=== PATIENT | male | born 1965 | race Caucasian/White ===

== ENCOUNTER 2020-07-19 06:51 | Outpatient (REF) | payer OTHER, SELFPAY ==
[2020-07-19 07:58] LABS: MANUAL DIFF FLAG NO
[2020-07-19 08:06] LABS: Basophils Percent Auto 0.6 % (0-2); Eosinophils Absolute Auto 0.1 X10*3/uL (0.0-0.4); Eosinophils Percent Auto 1.8 % (0-4); Hematocrit 43.7 % (42-52); Imm Gran Abs Auto 0.03 X10*3/uL (0.00-0.03); Imm Gran Pct Auto 0.4 % (0.0-0.4); Lymphocytes Absolute Auto 1.7 X10*3/uL (1.2-4.9); Lymphocytes Percent Auto 25.6 % (20-40); Mean Corpuscular HGB Conc 34.3 g/dl (31.0-36.0); Mean Corpuscular Hemoglobin 30.1 pg (27.0-33.0); Mean Corpuscular Volume 87.6 fL (80-98); Monocytes Absolute Auto 0.5 X10*3/uL (0.1-1.2); Monocytes Percent Auto 7.2 % (2-11); Neutrophils Absolute Auto 4.4 X10*3/uL (2.0-8.3); Neutrophils Percent Auto 64.4 % (45-73); Platelet Count 220 X10*3/uL (160-400); Red Blood Count 4.99 X10*6/uL (4.60-5.80); Red Cell Distribution Width 11.8 % (11.0-16.0); White Blood Count 6.8 X10*3/uL (4.8-10.8)
[2020-07-19 08:28] LABS: Alanine Aminotransferase 44 U/L (0-40); Albumin Level 4.7 g/dL (3.5-5.0); Alkaline Phosphatase 40 U/L (39-117); Anion Gap 12 (12-20); Aspartate Amino Transferase 26 U/L (5-37); Bilirubin Total 0.8 mg/dL (0.0-1.0); Blood Urea Nitrogen 13 mg/dL (9-16); Calcium 9.2 mg/dL (8.4-10.2); Carbon Dioxide 28 mmol/L (22-29); Chloride 102 mmol/L (96-108); Cholesterol 221 mg/dL; Estimated Glomerular Filt Rate > 60; Glucose Fasting 93 mg/dL (60-99); HDL Cholesterol 52 mg/dL; LDL Cholesterol Calculated 155 mg/dl; Potassium 4.2 mmol/l (3.3-5.1); Sodium 138 mmol/L (135-145); Total Protein 7.4 g/dL (6.5-8.0); Triglycerides 74 mg/dL
[2020-07-19 09:19] LABS: Creatinine Urine 202.46 mg/dL; Microalbum/Creatinine Ratio Ur 3.9 ug/mg cr
[2020-07-19 10:23] LABS: Estimated Average Glucose 88 mg/dL; Hemoglobin A1c % 4.7 %
== END 2020-07-19 06:52 | disposition home or self-care (01) ==
LOC: HO.LAB 06:51
PROVIDERS: Visit Provider Physician Assistant
DX: E78.5 Hyperlipidemia, unspecified (principal); I10 Essential (primary) hypertension; Z13.1 Encounter for screening for diabetes mellitus
CPT/HCPCS: 36415; 80053; 80061; 82043; 83036; 85025

== ENCOUNTER 2020-10-16 13:08 | Outpatient (REF) | payer OTHER, SELFPAY | END 2020-10-16 13:09 | disposition home or self-care (01) | LOC: HO.LAB 13:08 | PROVIDERS: Visit Provider Internal Medicine | DX: Z20.822 Contact with and (suspected) exposure to COVID-19 (principal) | CPT/HCPCS: 36415; C9803; U0003; U0005 ==

== ENCOUNTER 2020-10-17 10:51 | Outpatient (REF) | payer OTHER, SELFPAY ==
--- NOTE | ~2020-10-17 | XR_ITS ---
EXAMINATION: XR RIBS, RIGHT CLINICAL INFORMATION: Pleurodynia COMPARISON: Chest radiograph 01/25/2012, 11/12/2011 TECHNIQUE: Frontal view chest and 5 views of the right ribs are obtained for a total of 6 views. FINDINGS: On 2 of the ribs films, there is subtle focal cortical irregularity distal seventh anterior rib suggesting nondisplaced fracture. There is no destructive process. Remainder of the ribs appear intact. The lungs are clear. There is no pneumothorax, pleural reaction, airspace consolidation, or effusion. The heart is normal in size and the hilar and mediastinal contours are normal. The costophrenic sulci are clear. XR/XR ribs RT min 3V w CXR1V IMPRESSION: 1. Suspect nondisplaced fracture distal right anterior seventh rib. No destructive process. 2. Lungs clear. No pneumothorax, pleural reaction, or airspace opacity.
== END 2020-10-17 10:52 | disposition home or self-care (01) ==
LOC: HO.XRAY 10:51
PROVIDERS: PCP Internal Medicine; Visit Provider Nurse Practitioner Family
DX: R07.81 Pleurodynia (principal)
CPT/HCPCS: 71101

== ENCOUNTER 2020-11-30 06:31 | Outpatient (REF) | payer OTHER, SELFPAY ==
[2020-11-30 06:58] LABS: MANUAL DIFF FLAG NO
[2020-11-30 07:05] LABS: Basophils Percent Auto 0.5 % (0-2); Eosinophils Absolute Auto 0.2 X10*3/uL (0.0-0.4); Eosinophils Percent Auto 2.1 % (0-4); Hematocrit 46.3 % (42-52); Hemoglobin 15.6 g/dl (14.0-18.0); Imm Gran Abs Auto 0.03 X10*3/uL (0.00-0.03); Imm Gran Pct Auto 0.4 % (0.0-0.4); Lymphocytes Absolute Auto 2.2 X10*3/uL (1.2-4.9); Lymphocytes Percent Auto 27.7 % (20-40); Mean Corpuscular HGB Conc 33.7 g/dl (31.0-36.0); Mean Corpuscular Hemoglobin 28.8 pg (27.0-33.0); Mean Corpuscular Volume 85.4 fL (80-98); Mean Platelet Volume 10.6 fL (9.4-12.4); Monocytes Absolute Auto 0.6 X10*3/uL (0.1-1.2); Monocytes Percent Auto 7.5 % (2-11); Neutrophils Absolute Auto 4.9 X10*3/uL (2.0-8.3); Neutrophils Percent Auto 61.8 % (45-73); Platelet Count 244 X10*3/uL (160-400); Red Blood Count 5.42 X10*6/uL (4.60-5.80); Red Cell Distribution Width 11.5 % (11.0-16.0)
[2020-11-30 07:27] LABS: Alanine Aminotransferase 44 U/L (0-40); Albumin Level 4.8 g/dL (3.5-5.0); Alkaline Phosphatase 51 U/L (39-117); Anion Gap 15 (12-20); Aspartate Amino Transferase 26 U/L (5-37); Bilirubin Total 1.4 mg/dL (0.0-1.0); Blood Urea Nitrogen 14 mg/dL (9-16); Calcium 10.1 mg/dL (8.4-10.2); Carbon Dioxide 26 mmol/L (22-29); Chloride 100 mmol/L (96-108); Cholesterol 224 mg/dL; Estimated Glomerular Filt Rate > 60; Glucose Fasting 96 mg/dL (60-99); HDL Cholesterol 48 mg/dL; LDL Cholesterol Calculated 163 mg/dl; Potassium 4.3 mmol/L (3.3-5.1); Sodium 137 mmol/L (135-145); Total Protein 7.4 g/dL (6.5-8.0); Triglycerides 69 mg/dL
== END 2020-11-30 06:32 | disposition home or self-care (01) ==
LOC: HO.LAB 06:31
PROVIDERS: PCP Internal Medicine; Visit Provider Nurse Practitioner Family
DX: R07.81 Pleurodynia (principal)
CPT/HCPCS: 36415; 80053; 80061; 85025

== ENCOUNTER 2021-05-20 13:51 | Outpatient (REF) | payer OTHER, SELFPAY ==
--- NOTE | ~2021-05-20 | XR_ITS ---
EXAMINATION: XR CHEST CLINICAL INFORMATION: Cough COMPARISON: November 12, 2011 and right rib series of October 17, 2020 TECHNIQUE: 2 views of the chest were obtained. FINDINGS: There are regions of discoid scarring seen in both lung bases and the mid left lung. Heart normal size. No evidence of pulmonary edema. No pneumothorax or pleural effusion. There is an ill-defined hazy density seen within the right upper lobe. XR/XR chest 2V IMPRESSION: Ill-defined hazy density right upper lobe not seen on study of October 17, 2020 and may represent region of pneumonitis and less likely developing mass.
== END 2021-05-20 13:52 | disposition home or self-care (01) ==
LOC: HO.XRAY 13:51
PROVIDERS: PCP Internal Medicine; Visit Provider Nurse Practitioner Family
DX: R05.8 Other specified cough (principal)
CPT/HCPCS: 71046

== ENCOUNTER 2021-07-17 13:03 | Outpatient (REF) | payer SELFPAY ==
--- NOTE | ~2021-07-17 | XR_ITS ---
EXAMINATION: XR CHEST CLINICAL INFORMATION: Lung disorder. Prior CXR abnormality. Other disorders of lung. COMPARISON: 05/20/2021 TECHNIQUE: 2 views of the chest were obtained. FINDINGS: Lungs are well-inflated and clear. Previously observed patchy hazy pulmonary opacities have resolved. Trachea is midline in position. No interstitial disease, consolidation or mass. No pulmonary edema, pleural effusion or pneumothorax. Cardiac silhouette and pulmonary vessels are normal in size. The mediastinum and vincent have normal contour. Diffuse idiopathic skeletal hyperostosis as manifest by bulky flowing anterior ligament ossification of the mid to lower thoracic spine. XR/XR chest 2V IMPRESSION: Lungs have a normal appearance on this follow-up examination. No evidence of any residual pulmonary infiltrate.
== END 2021-07-17 13:04 | disposition home or self-care (01) ==
LOC: HO.XRAY 13:03
PROVIDERS: PCP Internal Medicine; Visit Provider Internal Medicine
DX: J98.4 Other disorders of lung (principal)
CPT/HCPCS: 71046

== ENCOUNTER 2022-05-09 07:14 | Outpatient (REF) | payer OTHER, SELFPAY ==
[2022-05-09 07:25] LABS: MANUAL DIFF FLAG NO
[2022-05-09 07:48] LABS: Basophils Percent Auto 0.5 % (0-2); Eosinophils Absolute Auto 0.2 X10*3/uL (0.0-0.4); Eosinophils Percent Auto 1.8 % (0-4); Hematocrit 44.1 % (42.0-52.0); Hemoglobin 14.8 g/dl (14.0-18.0); Imm Gran Abs Auto 0.06 X10*3/uL (0.00-0.03); Imm Gran Pct Auto 0.7 % (0.0-0.4); Lymphocytes Percent Auto 23.9 % (20-40); Mean Corpuscular HGB Conc 33.6 g/dl (31.0-36.0); Mean Corpuscular Hemoglobin 29.6 pg (27.0-33.0); Mean Corpuscular Volume 88.2 fL (80.0-98.0); Mean Platelet Volume 10.2 fL (9.4-12.4); Monocytes Absolute Auto 0.5 X10*3/uL (0.1-1.2); Monocytes Percent Auto 6.5 % (2-11); Neutrophils Absolute Auto 5.5 x10*3/uL (2.0-8.3); Neutrophils Percent Auto 66.6 % (45-73); Platelet Count 257 X10*3/uL (160-400); Red Cell Distribution Width 11.9 % (11.0-16.0); White Blood Count 8.3 X10*3/uL (4.8-10.8)
[2022-05-09 08:04] LABS: Alanine Aminotransferase 60 U/L (0-40); Albumin Level 4.5 g/dL (3.5-5.0); Alkaline Phosphatase 43 U/L (39-117); Anion Gap 14 (12-20); Aspartate Amino Transferase 32 U/L (5-37); Blood Urea Nitrogen 14 mg/dL (9-16); Calcium 9.2 mg/dL (8.4-10.2); Carbon Dioxide 27 mmol/L (22-29); Chloride 102 mmol/L (96-108); Cholesterol 248 mg/dL; Estimated Glomerular Filt Rate > 60; Glucose Random 104 mg/dL (60-115); HDL Cholesterol 46 mg/dL; LDL Cholesterol Calculated 180 mg/dl; Potassium 4.9 mmol/L (3.3-5.1); Sodium 138 mmol/L (135-145); Total Protein 7.1 g/dL (6.5-8.0); Triglycerides 113 mg/dL
[2022-05-09 08:28] LABS: Free T4 (Free Thyroxine) 1.23 ng/dL (0.71-1.85); Prostate Specific Antigen Scr 3.31 ng/mL (<0.05-4.0); Thyroid Stimulating Hormone 0.71 uIU/mL (0.32-4.0)
[2022-05-09 08:51] LABS: Folate 16.6 ng/mL (> or = 4.0); Vitamin B12 488 pg/mL (200-900)
== END 2022-05-09 07:15 | disposition home or self-care (01) ==
LOC: HO.LAB 07:14
PROVIDERS: PCP Internal Medicine; Visit Provider Internal Medicine
DX: Z12.5 Encounter for screening for malignant neoplasm of prostate (principal); F41.1 Generalized anxiety disorder; E78.00 Pure hypercholesterolemia, unspecified
CPT/HCPCS: 36415; 80053; 80061; 82607; 82746; 84153; 84439; 84443; 85025

== ENCOUNTER 2022-07-16 09:37 | Day surgery (SDC) | payer OTHER, SELFPAY ==
[2022-07-10 16:06] VITALS: BMI 28.8
--- NOTE | 2022-07-15 10:33 | HO.ANESPROP2 ---
Documented by User: Gaby Pierce NP 07/15/22 10:34 HPI - Anesthesia Eval Consult details Narrative: 57yo M for Colonoscopy PMFSH Active Problems Active Problems: All Active Problems (Updated 07/10/22 @ 15:57 by Glenna Shipley, LINDA) Dermatitis (Acute) Fracture of ribs, seven, closed (Acute) Plantar fasciitis of right foot (Acute) Colon cancer screening (Acute) Dry cough (Acute) Annual physical exam (Acute) Lung density on x-ray (Acute) Situational anxiety (Acute) Fatty liver (Acute) URI (upper respiratory infection) (Acute) HLD (hyperlipidemia) (Acute) HTN (hypertension) (Acute) Overweight (BMI 25.0-29.9) (Acute) Past Medical History Medical History Blood pressure elevated without history of HTN HLD (hyperlipidemia) HTN (hypertension) On beta cholo at home Overweight (BMI 25.0-29.9) SARS-CoV-2 positive Family History Family History Father Alcohol abuse Substance use disorder Mother Stomach cancer Surgical History Surgical History No pertinent past surgical history Social History Social History Household Members Other:: 2 kids Housing: House Alcohol intake: current Alcohol intake frequency: 0-2 drinks per day Patient Tobacco Use Status: Former Tobacco user Tobacco use type: Cigarette Years Smoked: quit 1989 e-Cigarette/Vaping Use: Never Used Second Hand Smoke Exposure: No Use of substances other than those prescribed or required for medical reasons: No Are you DNR?: No Advance Directives: No Advance Directives Information Provided: Yes service: Yes (in [place]) Current occupational status: employed 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 Cognitive needs: No Hearing needs: No Vision needs: No Meds Allergies Allergy/AdvReac Type Severity Reaction Status Date / Time lisinopril [Lisinopril] Allergy Mild ANGIOEDEMA, Verified 07/10/22 15:57 anaphylaxis SEASONAL ALLERGIES Allergy Unknown NASAL Uncoded 07/10/22 15:57 STUFFINESS Exam Exam Date and Time: July 15, 2022 1033 Height,Weight and Vital Signs: Height 6 ft 2 in Weight 101.605 kg Pertinent Lab Results Pertinent Lab Results: Laboratory Tests 05/09/22 05/09/22 07:24 07:24 WBC 8.3 Hgb 14.8 Hct 44.1 Plt Count 257 Sodium 138 Potassium 4.9 Chloride 102 Carbon Dioxide 27 BUN 14 Creatinine 0.73 Assessment and Plan Assessment Anesthesia Assessment: Chart Reviewed Documented by User: Brunilda Negron MD 07/16/22 10:10 [facility] Past Medical History Medical History Blood pressure elevated without history of HTN HLD (hyperlipidemia) HTN (hypertension) On beta cholo at home Overweight (BMI 25.0-29.9) SARS-CoV-2 positive Family History Family History Father Alcohol abuse Substance use disorder Mother Stomach cancer Surgical History Surgical History No pertinent past surgical history History of Problems with Anesthesia: No Social History Social History Household Members Other:: 2 kids Housing: House Alcohol intake: current Alcohol intake frequency: 0-2 drinks per day Patient Tobacco Use Status: Former Tobacco user Tobacco use type: Cigarette Years Smoked: quit 1989 e-Cigarette/Vaping Use: Never Used Second Hand Smoke Exposure: No Use of substances other than those prescribed or required for medical reasons: No Are you DNR?: No Advance Directives: No Advance Directives Information Provided: Yes service: Yes (in [place]) Current occupational status: employed 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 Cognitive needs: No Hearing needs: No Vision needs: No Meds Allergies Allergy/AdvReac Type Severity Reaction Status Date / Time lisinopril [Lisinopril] Allergy Mild ANGIOEDEMA, Verified 07/10/22 15:57 anaphylaxis SEASONAL ALLERGIES Allergy Unknown NASAL Uncoded 12/01/22 15:57 STUFFINESS Exam Airway Mallampati Class: III TM Dist: >3cm Neck ROM: Full Loose/Missing/Broken Teeth: No Heart: RRR Lungs: CTA Assessment and Plan Assessment Anesthesia Assessment: Anesthesia Plan Discussed Final Anesthetic Review History of Problems with Anesthesia: No NPO: Yes ASA Class: II Final Preanesthetic Review: Meds/Allgs Chart Reviewed, Consent Obtained/Reviewed and Anes Risks/Benef Reviewed Patient Risk: Low Procedure Risk: Low Anesthetic Plan Anesthetic Plan: MAC: Disposition: Standard PACU
--- NOTE | 2022-07-16 10:19 | MHC.SHP ---
Pre-Procedural Eval Section A Date of Service: 07/16/22 Section B Chief Complaint: screening Relevant Family History (Specify if Yes): No Relevant Social History: Alcohol Use Present Medications: see Short Stay Collaborative assessment Medical History: Significant History (Blood pressure elevated without history of HTN HLD (hyperlipidemia) HTN (hypertension) On beta cholo at home Overweight (BMI 25.0-29.9) SARS-CoV-2 positive) History of Previous Operations: No relevant previous surgery Allergies: Allergies Allergy/AdvReac Type Severity Reaction Status Date / Time lisinopril [Lisinopril] Allergy Mild ANGIOEDEMA, Verified 07/10/22 15:57 anaphylaxis SEASONAL ALLERGIES Allergy Unknown NASAL Uncoded 07/10/22 15:57 STUFFINESS Review of Systems Sugical H&P ROS: Negative: Constitution, Cardiovascular, Respiratory, Neurological, Psychiatric, Hem-Onc, Allergic/Immunologic, Gastrointestinal, Genitourinary, Musculoskeletal, Integumentary, Endocrine and Eyes/Ears/Nose/Throat Exam Surgical H&P Exam: Normal: HEENT, Normal: Heart, Normal: Lungs, Normal: Extremities, Normal: Abdomen, Normal: Skin and Normal: Neurological Plan Diagnosis/Plan: Unchanged I have reviewed the history and physical and performed a pertinent physical examination on my patient. No changes have occurred unless specified.
[2022-07-16 10:25] VITALS: BP 144/82; PULSE 80; RESP 14; TEMP 36.3; O2SAT 98
[2022-07-16] MEDS: Lactated Ringers 1,000 ML 100 ML IVCONT (10:26)
--- NOTE | 2022-07-16 10:56 | P.OP_ITS ---
Operative Note Operative Note Date of Service: 07/16/22 Narrative: Operative Information Procedure Description: Colonoscopy Indication: screening Anesthesia: MAC COLONOSCOPY Instrument: Olympus variable stiffness pediatric scope 190L Colonoscopy Monitoring: Vital signs and clinical assessment, continuous EKG monitoring, Pulse oximetry, Carbon Dioxide monitoring and blood pressure monitoring were done throughout the procedure. Colon withdrawal time was 10 minutes. Procedure: The patient was placed in the left lateral decubitis position and pre-procedure medications were administered. After a digital rectal examination of the ano-rectum, the video colonoscope was inserted into the rectum and advanced through the colon to the cecum/TI. The colonoscope was slowly withdrawn in a retrograde panoramic fashion and the colon mucosa was carefully examined including a retroflexed view of the rectum. Findings and interventions are described below. Procedure Difficulty: easy Findings: Terminal Ileum-normal Cecum:normal Ascending Colon: normal Transverse Colon - scattered diverticula Descending Colon: mild diverticulosis Sigmoid Colon: moderate severe diverticulosis with luminal hypertrophy, 10-12 mm sessile polyp removed with cold snare Rectum: Retroflexion with small internal hemorrhoids, grade I Anorectum - normal Colon preparation: Waldron Bowel Preparation Scale Right colon; 2 Transverse colon: 3 Left colon; 3 (0 = Unprepared colon segment with mucosa not seen due to solid stool that cannot be cleared. 1 = Portion of mucosa of the colon segment seen, but other areas of the colon segment not well seen due to staining, residual stool and/or opaque liquid. 2 = Minor amount of residual staining, small fragments of stool and/or opaque liquid, but mucosa of colon segment seen well. 3 = Entire mucosa of colon segment seen well with no residual staining, small fragments of stool or opaque liquid) Impression and Post Procedure Diagnosis: polyp internal hemorrhoids diverticular disease Plan: High fiber diet leaflet Avoid straining at stool, epsom salts and sitz bath, anusol supps or cream Repeat Colonoscopy in 5 years due to polyp or earlier if clinically indicated Above findings were reviewed with the patient and relevant handouts were provided if indicated.
[2022-07-16 10:59] VITALS: BP 143/73; PULSE 77; RESP 16; TEMP 36.4; O2SAT 97
[2022-07-16 11:14] VITALS: BP 129/68; PULSE 71; RESP 18; TEMP 36.4; O2SAT 98
== END 2022-07-16 11:59 ==
LOC: HO.SSS 09:38
PROVIDERS: PCP Internal Medicine; Visit Provider Internal Medicine Gastroenterology
PROC: 0DJD8ZZ Inspection of Lower Intestinal Tract, Via Natural or Artificial Opening Endoscopic (ICD-10-PCS; CPT 45378; principal; 2022-07-16 11:00)
DX: Z12.11 Encounter for screening for malignant neoplasm of colon (principal); D12.5 Benign neoplasm of sigmoid colon; K57.30 Diverticulosis of large intestine without perforation or abscess without bleeding; K64.0 First degree hemorrhoids; I10 Essential (primary) hypertension; E78.5 Hyperlipidemia, unspecified; Z79.899 Other long term (current) drug therapy; Z88.8 Allergy status to other drugs, medicaments and biological substances
CPT/HCPCS: 45385; 88305

== ENCOUNTER → 2022-08-07 08:01 | Outpatient (BNVA) | payer OTHER, SELFPAY | PROVIDERS: PCP Internal Medicine; Referring Provider Internal Medicine; Visit Provider Physician Assistant | DX: D36.9 Benign neoplasm, unspecified site (principal) ==

== ENCOUNTER 2023-02-26 06:41 | Outpatient (REF) | payer OTHER, SELFPAY ==
[2023-02-26 09:48] LABS: Alanine Aminotransferase 86 U/L (0-40); Albumin Level 4.4 g/dL (3.5-5.0); Alkaline Phosphatase 43 U/L (39-117); Anion Gap 13 (12-20); Aspartate Amino Transferase 49 U/L (5-37); Bilirubin Total 1.5 mg/dL (0.0-1.0); Blood Urea Nitrogen 15 mg/dL (9-16); Calcium 9.4 mg/dL (8.4-10.2); Carbon Dioxide 25 mmol/L (22-29); Chloride 102 mmol/L (96-108); Cholesterol 253 mg/dL; Estimated Glomerular Filt Rate > 60; Glucose Random 79 mg/dL (60-115); HDL Cholesterol 54 mg/dL; LDL Cholesterol Calculated 187 mg/dl; Potassium 3.7 mmol/L (3.3-5.1); Sodium 136 mmol/L (135-145); Total Protein 7.3 g/dL (6.5-8.0); Triglycerides 63 mg/dL
[2023-02-26 10:53] LABS: Estimated Average Glucose 85 mg/dL; Hemoglobin A1c % 4.6 %
== END 2023-02-26 06:42 | disposition home or self-care (01) ==
LOC: HO.LAB 06:41
PROVIDERS: PCP Internal Medicine; Visit Provider Internal Medicine
DX: E78.1 Pure hyperglyceridemia (principal); R73.01 Impaired fasting glucose; E78.00 Pure hypercholesterolemia, unspecified
CPT/HCPCS: 36415; 80053; 80061; 83036

== ENCOUNTER → 2023-12-11 07:58 | Outpatient (REF) | payer OTHER, SELFPAY ==
--- NOTE | 2023-12-11 08:05 | CA_ITS ---
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 The calculated ejection fraction is 56% by biplane method. - No obvious valvular pathology seen on this study. Findings Procedure Information Contrast agent, definity, is being given per protocol without apparent complications. Left Ventricle Normal left ventricular cavity size. The left ventricular systolic function is normal. The calculated ejection fraction is 56% by biplane method. There is no evidence of regional wall motion abnormalities. Diastolic function is normal for age. There is mild septal asymmetric hypertrophy. Right Ventricle Normal right ventricular cavity size and systolic function. Atria Both atria are normal in size. Aortic Valve There is a normal trileaflet aortic valve. There is no aortic valve stenosis. There is no aortic valve regurgitation. Mitral Valve The mitral valve appears normal. There is no mitral valve regurgitation. There is no mitral valve stenosis. Pulmonic Valve The pulmonic valve is likely normal. Tricuspid Valve Normal tricuspid valve structure. There is no tricuspid valve regurgitation. Tricuspid regurgitation envelope is inadequate for calculation of right ventricular systolic pressure. Great Vessels The sinuses of valsalva and asc aorta are normal in size. Venous The inferior vena cava is normal in size and collapses greater than 50% with inspiration. Pericardium/Pleural There is no evidence of pericardial effusion. Prior Study Comparison No prior study available for comparison. Recommendations, Care & Conclusions No obvious valvular pathology seen on this study. Measurements 2D Linear Measurements IVSd: 1.16 0.6-0.9/0.6-1.0 cm LVIDd: 5.00 3.9-5.3/4.2-5.9 cm LVIDd Index: 2.21 2.4-3.2/2.2-3.1 cm/m2 LVIDs: 3.48 2.0-3.6 cm LVPWd: 2.91 0.7-1.1 cm LV Mass: 645.99 67-162/88-224 g LV Mass Index: 285.84 43-95/49-115 g/m2 LVOT Diam: 2.30 3.0+(-)1.3 cm 2D Systolic Function EF 4C: 59.00 >55% EF 2C: 58.50 >55% EF BiP: 56.20 >55% Mitral Valve MV Pk E: 0.67 MV PK A: 0.48 MV Decel Time: 146.00 E/A: 1.40 E'Lateral: 8.70 E'Medial: 7.62 E/E' Med: 8.80 E/E' Lat: 7.70 PHT: 43.00 MVA PHT: 5.12 Decel Summit: 4.57 Aortic Valve AoV Pk Marquis: 1.13 AoV Pk Grad: 5.00 WENDI: 4.26 LVOT LVOT Pk Marquis: 1.11 LVOT Mn Marquis: 0.76 LVOT VTI: 0.23 LVOT Pk Grad: 5.00 LVOT Mn Grad: 3.00 LVOT Diam: 2.30 LVOT Area: 4.15 Diastolic Function MV Pk E: 0.67 MV Pk A: 0.48 E/A: 1.40 E'Medial: 7.62 E/E' Med: 8.80 E' Laterial: 8.70 E/E' Lat: 7.70 Right Ventricle TAPSE (mm): 19.30 TVS' Marquis: 12.90 Tricuspid Valve RA Press: 3.00 Great Vessels Aorta Sinus of Valsalva: 3.80 2.0-3.5 cm Ao Asc: 3.40 2.1-3.4 cm Pulmonary Veins Pulm Vein S/D 1.30 Pulmonary Valve PV Pk Marquis: 0.95 Peak PV Grad: 4.00 Updated in Other Vendor System with Status of Final Dominik Jade MD electronically signed on 12/12/2023 1:19:43 PM with status of Final
== END ==
LOC: HO.CARD 07:58
PROVIDERS: PCP Internal Medicine; Visit Provider Internal Medicine
DX: I48.91 Unspecified atrial fibrillation (principal)
CPT/HCPCS: 93306; Q9957

== ENCOUNTER → 2023-12-11 08:05 | Outpatient (BNV) | payer OTHER, SELFPAY | PROVIDERS: PCP Internal Medicine; Visit Provider Internal Medicine | DX: I48.91 Unspecified atrial fibrillation (principal); I42.2 Other hypertrophic cardiomyopathy | CPT/HCPCS: 93306 ==

== ENCOUNTER 2023-12-17 16:14 | Outpatient (AMB) | payer OTHER, SELFPAY ==
--- NOTE | 2023-12-17 16:26 | A.OFFPC_ITS ---
Vital Signs 12/17/23 16:27 12/17/23 16:59 Height 6 ft 2 in Weight 218 lb BMI 28.0 BP 140/76 H 144/70 H Blood Pressure Location Lt brachial Lt brachial Position Sitting Sitting Pulse 78 Pulse Source Pulse Oximeter Pulse Oximetry (%) 98 Oxygen Delivery Method Room Air Intake Visit Reasons: Physical exam Lead Dental Assistant Required: No Accompanied by: Self / Same As Patient Allergies lisinopril [Lisinopril] Allergy (Mild, Verified 12/17/23 16:27) ANGIOEDEMA, anaphylaxis SEASONAL ALLERGIES Allergy (Unknown, Uncoded 12/17/23 16:27) NASAL STUFFINESS Medication List - Last Reconciled 12/17/23 by Keiko Tabares MD cetirizine (Zyrtec) 10 mg PO DAILY clotrimazole 1% 1 appl topical BID 4 weeks metoprolol succinate ER 100 mg PO DAILY Tobacco use date assessed: 12/17/23 Dental Screening Dental Screen Date: 12/17/23 Did you have a dental visit in the last 12 months?: No Did you have a dental problem in the last 6 months where you did not have access to dental care?: No Was dental information given to patient?: Patient has dentist ([place] in his [place] HPI Physical exam HPI Details 58-year-old overweight male with hyperte nsion hypercholesterolemia fatty liver impaired glucose tolerance last seen in January 2023. Patient is here for physical exam. Patient's last colonoscopy was July 2022 echocardiogram done in 12/11/2023 showing left ventricular systolic function normal ejection fraction 56% and no obvious valvular pathology. Noted ER visit in November 2023 palpitations self-medicated with metoprolol diagnosis of paroxysmal atrial fibrillation. sleepy on watchint tv , takes a nap, sometime snore decline sleep study chest discomfort [facility] Medical History (Updated 12/17/23 @ 16:54 by Keiko Tabares MD) On beta cholo at home Situational anxiety Blood pressure elevated without history of HTN Lung density on x-ray SARS-CoV-2 positive Dry cough Colon cancer screening Overweight (BMI 25.0-29.9) HTN (hypertension) HLD (hyperlipidemia) Surgical History Hx of colonoscopy No pertinent past surgical history Family History Father Alcohol abuse Substance use disorder Mother Stomach cancer Brother Heart attack Social History (Updated 12/17/23 @ 17:03 by Keiko Tabares MD) Household Members Other:: 2 kids Housing: House Alcohol intake: current Alcohol intake frequency: 0-2 drinks per day Comment: glass of wine or 2 beers 3x a week Patient Tobacco Use Status: Former Tobacco user Tobacco use type: Cigarette Years Smoked: quit 1989 e-Cigarette/Vaping Use: Never Used Second Hand Smoke Exposure: No service: Yes (in [place]) Current occupational status: employed 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 1. Little interest or pleasure in doing things: not at all 2. Feeling down, depressed, or hopeless: not at all 3. Trouble falling or staying asleep, or sleeping too much: not at all 4. Feeling tired or having little energy: not at all 5. Poor appetite or overeating: not at all 6. Feeling bad about yourself - or that you are a failure or have let yourself or your family down: not at all 7. Trouble concentrating on things, such as reading the newspaper or watching television: not at all 8. Moving or speaking so slowly that other people could have noticed. Or the opposite - being so fidgety or restless that you have been moving around a lot more than usual: not at all 9. Thoughts that you would be better off or of hurting yourself in some way: not at all Total score: 0 Depression Screening Interpretation: Negative Depression Screening Done: Yes [id number] - PHQ-9 Billing: Yes Source: Developed by Drs. Jonas Valladares, Farideh Barba, Dio Bonds and colleagues, with an educational soham from [employer]. Thrive Questionnaire Date Thrive assessed: 12/17/23 I am a: Patient What is your living situation today?: I have a steady place to live Within the past 12 months, did the food you bought not last and you didn't have the money to get more?: Never true Within the past 12 months, did you worry whether your food would run out before you got money to buy more?: Never true Do you have trouble paying for medicines?: No Do you have trouble getting transportation to medical appointments?: No Do you have trouble paying your heating and electricity bill?: No Do you have trouble taking care of your child, family member or friend?: No Do you have trouble with day-to-day activities such as bathing, preparing meals, shopping, managing finances, etc.?: No Are you currently unemployed and looking for a job?: No Are you interested in more education?: No Currently or been in a relationship where the following occur: no concerns reported THRIVE Score: 0 AUDIT C Alcohol Use Questionnaire (AUDIT-C) 1. How often do you have a drink containing alcohol?: 2-4 times a month 2. How many drinks containing alcohol do you have on a typical day when you are drinking?: 1 or 2 3. How often do you have six or more drinks on one occasion?: Never Total Score: 2 Score Reviewed/Action Taken: No SCOTT-7 AMB Questionnaire SCOTT-7 Date SCOTT - 7 assessed: 12/17/23 Feeling nervous, anxious, or on edge: 0 = Not at all Not being able to stop or control worryin = Not at all Worrying too much about different things: 0 = Not at all Trouble relaxin = Not at all Being so restless that it is hard to sit still: 0 = Not at all Becoming easily annoyed or irritable: 0 = Not at all Feeling afraid as if something awful might happen: 0 = Not at all Total SCOTT-7 score (0-4 normal; 5-9 mild; 10-14 moderate; 15-21 severe): 0 Source: Developed by Drs. Jonas Valladares, Farideh Barba, Dio Bonds and colleagues, with an educational soham from [employer]. SCOTT-7 Assessment Billing SCOTT-7 Assessment Tool: SCOTT-7 Assessment [id number] Review of Systems Const Denies poor appetite and Denies weakness Eyes Denies no additional complaints ENT Reports Normal hearing present, Denies dizziness, Denies nasal congestion, Denies tinnitus and Denies sore throat Card Denies chest pain, Denies syncope, Denies rapid heart rate and Denies dyspnea Resp Denies cough and Denies dyspnea GI Denies change in stool character, Reports constipation, Denies diarrhea, Denies nausea and Denies vomiting Denies dysuria and Denies urinary frequency Neuro Reports Normal hearing present, Denies confusion, Denies dizziness, Denies syncope and Denies weakness Psych Denies confusion Physical exam (Primary Care) Vital Signs: Last Vital Signs Pulse 78 12/17/23 16:27 BP 140/76 H 12/17/23 16:27 Pulse Ox 98 12/17/23 16:27 Oxygen Delivery Method Room Air 12/17/23 16:27 BMI result Body Mass Index 28.0 Tobacco/Smoking Status: Tobacco use Status Tobacco use date assessed 12/17/23 12/17/23 16:36 Patient Tobacco Use Status Former Tobacco user 12/17/23 16:36 Tobacco use type Cigarette 12/17/23 16:36 e-Cigarette/Vaping Use Never Used 12/17/23 16:36 PHQ-9: PHQ-9 Score PHQ-9: Total score 0 12/17/23 16:36 Depression Screening Interpretation: Negative Thrive Assessment: Date of Thrive Assessment Date Thrive assessed 12/17/23 12/17/23 16:36 Currently or been in a relationship where the following occur: no concerns reported Const General: alert and awake; No confusion Orientation/consciousness: No confusion HENMT Head: Yes normocephalic Ears: external ears normal and TM's normal bilaterally Face and sinus: Yes normal facial exam Mouth: moist mucous membranes Throat: Yes tonsils normal Eyes Conjunctivae: conjunctivae normal Pupils: Equal, round and reactive pupils present and Pupil accommodation reflex normal Direct Ophthalmoscopy: normal light reflex Neck Neck: No lymphadenopathy Thyroid: Thyroid normal Chest Chest palpation & inspection: normal inspection of the chest Resp Effort & Inspection: normal respiratory effort and no audible wheezes Auscultation: clear to auscultation bilaterally, no crackles, no wheezes and lung sounds not diminished Cardio Rate: regular rate Rhythm: regular rhythm Peripheral pulses: radial pulses present and dorsalis pedis present GI Other: Declined rectal exam Palpation (GI): no masses Auscultation: normal bowel sounds and normoactive bowel sounds Rectal Exam - Male: Yes deferred Other: Declined exam Skin General skin exam: no rashes or lesions noted Rashes: no rashes Neuro General: deep tendon reflexes 2+ bilaterally and No confusion Cranial nerves: Yes Equal, round and reactive pupils present, Yes Midline tongue present, Yes Normal hearing present and Yes Ability to bilaterally elevate shoulders present Cognition (Neuro): normal cognition Gait exam (Neuro): Normal gait present Motor exam (neuro): 5/5 motor strength present throughout Deep tendon reflexes (DTR's): Right brachioradialis reflex intensity grade: 2+, Left brachioradialis reflex intensity grade: 2+, Right patellar reflex intensity grade: 2+ and Left patellar reflex intensity grade: 2+ Extrem General: No edema Assessment and Plan Assessment & Plan (1) Annual physical exam: Code(s): Z00.00 - Encounter for general adult medical examination without abnormal findings Plan: Discussed about eating healthy, keep well hydrated, keep active and have adequate sleep. (2) Overweight (BMI 25.0-29.9): Code(s): E66.3 - Overweight Plan: Diet and exercise (3) HTN (hypertension): Code(s): I10 - Essential (primary) hypertension Qualifiers: Hypertension type: essential hypertension Qualified Code(s): I10 - Essential (primary) hypertension Plan: Continue with blood pressure medication. Decrease salt intake and exercise patient was prescribed metoprolol 50 mg once a day but this is being taken irregularly. Patient knows now to take it regularly and has just started 2 weeks ago. Will continue to monitor blood pressure and follow-up in about 6 weeks' time. (4) HLD (hyperlipidemia): Code(s): E78.5 - Hyperlipidemia, unspecified Qualifiers: Hyperlipidemia type: pure hypertriglyceridemia Qualified Code(s): E78.1 - Pure hyperglyceridemia Plan: Avoid fried foods, chicken skin, eggs, butter margarine, pastries and meat. Be it pork or beef they have a lot of cholesterol LDL goal of less than 130 and triglyceride of less than 150. Not on any medication but we will retest. (5) Fatty liver: Code(s): K76.0 - Fatty (change of) liver, not elsewhere classified Plan: Low-fat diet and exercise (6) Impaired fasting blood sugar: Code(s): R73.01 - Impaired fasting glucose Plan: Decrease the amount of carbohydrate intake, pasta, bread, rice and potatoes are all sugar and that is aside from all the sweet stuff, remember that fruits are good but they are Sweet also. (7) Atrial fibrillation: Comment: SAMANTA 1 Code(s): I48.91 - Unspecified atrial fibrillation Plan: Continuing to monitor, referral to Cardiology, Holter testing requested. Orders: Orders Hemoglobin A1c Today R73.01 - Impaired fasting glucose Complete Blood Count Auto Diff Today E78.1 - Pure hyperglyceridemia Free T4 (Free Thyroxine) Today E78.1 - Pure hyperglyceridemia Prostate Specific Antigen Scr Today E78.1 - Pure hyperglyceridemia Thyroid Stimulating Hormone Today E78.1 - Pure hyperglyceridemia Vitamin B12 and Folate Today E78.1 - Pure hyperglyceridemia ECG 3 day holter monitor Today I48.91 - Unspecified atrial fibrillation Comprehensive Met. Panel Today R73.01 - Impaired fasting glucose Lipid Panel Today E78.00 - Pure hypercholesterolemia, unspecified, E78.1 - Pure hyperglyceridemia Referrals Cardiology Referral I48.91 - Unspecified atrial fibrillation Coding Level of Care Code Est Pt Prev Care 40-64y(48892) Diagnoses Annual physical exam Z00.00 Overweight (BMI 25.0-29.9) E66.3 Essential hypertension I10 Hypertension type: essential hypertension Pure hypertriglyceridemia E78.1 Hyperlipidemia type: pure hypertriglyceridemia Fatty liver K76.0 Impaired fasting blood sugar R73.01 Atrial fibrillation I48.91 Additional Codes SCOTT-7 Assessment Billing - SOCTT-7 Assessment Tool: SCOTT-7 Assessment [id number] ([id number])
[2023-12-17 16:27] VITALS: BP 140/76; PULSE 78; O2SAT 98; BMI 28.0
[2023-12-17 16:59] VITALS: BP 144/70
== END 2023-12-17 17:14 | disposition home or self-care (01) ==
PROVIDERS: PCP Internal Medicine; Visit Provider Internal Medicine
DX: Z00.00 Encounter for general adult medical examination without abnormal findings (principal); E66.3 Overweight; I48.91 Unspecified atrial fibrillation; I10 Essential (primary) hypertension; E78.1 Pure hyperglyceridemia; K76.0 Fatty (change of) liver, not elsewhere classified; R73.01 Impaired fasting glucose
CPT/HCPCS: 99396

== ENCOUNTER → 2024-01-06 09:05 | Outpatient (REF) | payer OTHER, SELFPAY ==
--- NOTE | 2024-01-06 09:08 | HM_ITS ---
Conclusion: 1. Patient was monitored for total period of 3 days 2. Baseline was normal sinus rhythm with average heart of 75 beats per minute 3. No significant pauses noted 4. Occasional PACs noted with no significant long episodes of SVT 5. No patient reported events MTDD
== END ==
LOC: HO.CARD 09:05
PROVIDERS: PCP Internal Medicine; Visit Provider Internal Medicine
DX: I48.91 Unspecified atrial fibrillation (principal)
CPT/HCPCS: 93242

== ENCOUNTER → 2024-01-06 09:08 | Outpatient (BNV) | payer OTHER, SELFPAY | PROVIDERS: PCP Internal Medicine; Visit Provider Internal Medicine Cardiovascular Disease | DX: I49.1 Atrial premature depolarization (principal) | CPT/HCPCS: 93244 ==

== ENCOUNTER 2024-01-08 07:08 | Outpatient (REF) | payer OTHER, SELFPAY ==
[2024-01-08 07:19] LABS: MANUAL DIFF FLAG NO
[2024-01-08 07:39] LABS: Basophils Percent Auto 0.4 % (0-2); Eosinophils Absolute Auto 0.2 X10*3/uL (0.0-0.4); Eosinophils Percent Auto 2.4 % (0-4); Hemoglobin 15.6 g/dl (14.0-18.0); Imm Gran Abs Auto 0.02 X10*3/uL (0.00-0.03); Imm Gran Pct Auto 0.3 % (0.0-0.4); Lymphocytes Absolute Auto 1.9 X10*3/uL (1.2-4.9); Lymphocytes Percent Auto 26.4 % (20-40); Mean Corpuscular HGB Conc 35.5 g/dl (31.0-36.0); Mean Corpuscular Hemoglobin 30.1 pg (27.0-33.0); Mean Corpuscular Volume 84.8 fL (80.0-98.0); Mean Platelet Volume 10.6 fL (9.4-12.4); Monocytes Absolute Auto 0.5 X10*3/uL (0.1-1.2); Monocytes Percent Auto 7.2 % (2-11); Neutrophils Absolute Auto 4.6 x10*3/uL (2.0-8.3); Neutrophils Percent Auto 63.3 % (45-73); Platelet Count 183 X10*3/uL (160-400); Red Blood Count 5.19 X10*6/uL (4.60-5.80); Red Cell Distribution Width 11.9 % (11.0-16.0); White Blood Count 7.2 X10*3/uL (4.8-10.8)
[2024-01-08 07:50] LABS: Estimated Average Glucose 91 mg/dL; Hemoglobin A1c % 4.8 % (<6.0)
[2024-01-08 08:05] LABS: Alanine Aminotransferase 55 U/L (0-40); Albumin Level 4.4 g/dL (3.5-5.0); Alkaline Phosphatase 44 U/L (39-117); Anion Gap 11 (12-20); Aspartate Amino Transferase 36 U/L (5-37); Bilirubin Total 1.2 mg/dL (0.0-1.0); Blood Urea Nitrogen 15 mg/dL (9-16); Calcium 9.8 mg/dL (8.4-10.2); Carbon Dioxide 28 mmol/L (22-29); Chloride 102 mmol/L (96-108); Cholesterol 266 mg/dL (<200); Estimated Glomerular Filt Rate > 60; Glucose Random 98 mg/dL (60-115); HDL Cholesterol 58 mg/dL (>40); LDL Cholesterol Calculated 191 mg/dL (<100); Potassium 3.8 mmol/L (3.3-5.1); Sodium 137 mmol/L (135-145); Total Protein 7.2 g/dL (6.5-8.0); Triglycerides 85 mg/dL (<150)
[2024-01-08 08:29] LABS: Folate 12.9 ng/mL (> or = 4.0); Free T4 (Free Thyroxine) 1.04 ng/dL (0.71-1.85); Prostate Specific Antigen Scr 3.84 ng/mL (<0.05-4.0); Thyroid Stimulating Hormone 0.95 uIU/mL (0.32-4.0); Vitamin B12 415 pg/mL (200-900)
== END 2024-01-08 07:09 | disposition home or self-care (01) ==
LOC: HO.LAB 07:08
PROVIDERS: PCP Internal Medicine; Visit Provider Internal Medicine
DX: E78.1 Pure hyperglyceridemia (principal); E78.00 Pure hypercholesterolemia, unspecified; R73.01 Impaired fasting glucose; Z12.5 Encounter for screening for malignant neoplasm of prostate
CPT/HCPCS: 36415; 80053; 80061; 82607; 82746; 83036; 84153; 84439; 84443; 85025

== ENCOUNTER 2024-02-05 11:49 | Outpatient (AMB) | payer OTHER, SELFPAY ==
--- NOTE | 2024-02-05 11:54 | MHC.PC.OV ---
Vital Signs 02/05/24 11:55 Height 6 ft 2 in Weight 211 lb BMI 27.1 BP 140/86 H Blood Pressure Location Lt brachial Position Sitting Pulse 68 Pulse Source Pulse Oximeter Pulse Oximetry (%) 98 Oxygen Delivery Method Room Air Intake Visit Reasons: 6 wk follow up Allergies lisinopril [Lisinopril] Allergy (Mild, Verified 02/05/24 11:56) ANGIOEDEMA, anaphylaxis SEASONAL ALLERGIES Allergy (Unknown, Uncoded 02/05/24 11:56) NASAL STUFFINESS Medication List - Last Reconciled 02/05/24 by Keiko Tabares MD cetirizine (Zyrtec) 10 mg PO DAILY clotrimazole 1% 1 appl topical BID 4 weeks metoprolol succinate ER 100 mg PO DAILY simvastatin 10 mg PO BEDTIME Tobacco use date assessed: 12/17/23 Dental Screening Dental Screen Date: 12/17/23 HPI 6 wk follow up HPI Details 58-year-old overweight male with a history of hypertension hypercholesterolemia fatty liver impaired glucose tolerance atrial fibrillation last seen in 12/28/2023. Patient's colonoscopy done 07/29/2022 up-to-date. Patient had a Holter done 01/06/2024 normal sinus rhythm no pauses occasional skipped beats. Blood work done showing hypercholesterolemia and discussed concerns about this and started on cholesterol medication. [facility] Medical History (Updated 12/17/23 @ 16:54 by Keiko Tabares MD) On beta cholo at home Situational anxiety Blood pressure elevated without history of HTN Lung density on x-ray SARS-CoV-2 positive Dry cough Colon cancer screening Overweight (BMI 25.0-29.9) HTN (hypertension) HLD (hyperlipidemia) Surgical History Hx of colonoscopy No pertinent past surgical history Family History Father Alcohol abuse Substance use disorder Mother Stomach cancer Brother Heart attack Social History (Updated 12/17/23 @ 17:03 by Keiko Tabares MD) Household Members Other:: 2 kids Housing: House Alcohol intake: current Alcohol intake frequency: 0-2 drinks per day Comment: glass of wine or 2 beers 3x a week Patient Tobacco Use Status: Former Tobacco user Tobacco use type: Cigarette Years Smoked: quit 1989 e-Cigarette/Vaping Use: Never Used Second Hand Smoke Exposure: No service: Yes (in [place]) Current occupational status: employed 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 How often do you have a drink containing alcohol?: 2-4 times a month 2. How many drinks containing alcohol do you have on a typical day when you are drinking?: 1 or 2 3. How often do you have six or more drinks on one occasion?: Never Total Score: 2 Score Reviewed/Action Taken: No SCOTT-7 AMB Questionnaire SCOTT-7 Date SCOTT - 7 assessed: 12/17/23 Source: Developed by Drs. Jonas Valladares, Farideh Barba, Dio Bonds and colleagues, with an educational soham from [employer]. Physical exam (Primary Care) Vital Signs: Last Vital Signs Pulse 68 02/05/24 11:55 BP 140/86 H 02/05/24 11:55 Pulse Ox 98 02/05/24 11:55 Oxygen Delivery Method Room Air 02/05/24 11:55 BMI result Body Mass Index 27.1 Tobacco/Smoking Status: Tobacco use Status Tobacco use date assessed 12/17/23 02/05/24 11:54 Patient Tobacco Use Status Former Tobacco user 02/05/24 11:54 Tobacco use type Cigarette 02/05/24 11:54 e-Cigarette/Vaping Use Never Used 02/05/24 11:54 Thrive Assessment: Date of Thrive Assessment Date Thrive assessed 12/17/23 02/05/24 11:54 Const General: alert; No acute distress Eyes Conjunctivae: conjunctivae normal Resp Auscultation: clear to auscultation bilaterally Cardio Rate: regular rate Rhythm: regular rhythm GI Inspection: Yes normal to inspection Extrem General: Yes normal to inspection and No edema Assessment and Plan Assessment & Plan (1) Atrial fibrillation: Comment: SAMANTA 1 Code(s): I48.91 - Unspecified atrial fibrillation Plan: Holter done revealed negative results (2) Impaired fasting blood sugar: Code(s): R73.01 - Impaired fasting glucose Plan: Decrease the amount of carbohydrate intake, pasta, bread, rice and potatoes are all sugar and that is aside from all the sweet stuff, remember that fruits are good but they are Sweet also. (3) Fatty liver: Code(s): K76.0 - Fatty (change of) liver, not elsewhere classified Plan: Low-fat diet and exercise noted weight loss (4) HTN (hypertension): Code(s): I10 - Essential (primary) hypertension Qualifiers: Hypertension type: essential hypertension Qualified Code(s): I10 - Essential (primary) hypertension Plan: Continue with blood pressure medication. Decrease salt intake and exercise patient is on metoprolol 100 mg once a day. BP at home 127-132/70 good at home (5) HLD (hyperlipidemia): Code(s): E78.5 - Hyperlipidemia, unspecified Qualifiers: Hyperlipidemia type: pure hypertriglyceridemia Qualified Code(s): E78.1 - Pure hyperglyceridemia Plan: Avoid fried foods, chicken skin, eggs, butter margarine, pastries and meat. Be it pork or beef they have a lot of cholesterol LDL goal of less than 130 and triglyceride of less than 150. Started on simvastatin 10 mg at bedtime (6) Overweight (BMI 25.0-29.9): Code(s): E66.3 - Overweight Plan: Diet and exercise Medications: New metoprolol succinate ER 100 mg PO DAILY 90 tabs 3RF I10 - Essential (primary) hypertension Coding Level of Care Code Est Pt Level 4 (01713) Diagnoses Atrial fibrillation I48.91 Impaired fasting blood sugar R73.01 Fatty liver K76.0 Essential hypertension I10 Hypertension type: essential hypertension Pure hypertriglyceridemia E78.1 Hyperlipidemia type: pure hypertriglyceridemia Overweight (BMI 25.0-29.9) E66.3
[2024-02-05 11:55] VITALS: BP 140/86; PULSE 68; O2SAT 98; BMI 27.1
== END 2024-02-05 12:42 | disposition home or self-care (01) ==
PROVIDERS: PCP Internal Medicine; Visit Provider Internal Medicine
DX: I48.91 Unspecified atrial fibrillation (principal); R73.01 Impaired fasting glucose; K76.0 Fatty (change of) liver, not elsewhere classified; I10 Essential (primary) hypertension; E78.1 Pure hyperglyceridemia; E66.3 Overweight
CPT/HCPCS: 99214

== ENCOUNTER 2024-03-14 09:28 | Outpatient (AMB) | payer OTHER, SELFPAY ==
[2024-03-14 09:31] VITALS: BP 122/68; PULSE 67; BMI 27.2
--- NOTE | 2024-03-14 09:31 | A.OFFVIS_ITS ---
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 In November of this year, he had palpitations and that led to ER visit at [facility]. Found to be in atrial fibrillation. Spontaneously resolved according to patient. Total duration is a few hours but nothing prolonged. Has not had any recurrences. History of hypertension but he was not apparently take any medications. After the episode of atrial fibrillation, he has been taking beta-blockers. No further episodes. Otherwise, no known cardiac issues. No documented sleep apnea but his states that he does note at nighttime. 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 Since that episode of atrial fibrillation, he states he is feeling fine. Doing okay without any concerns. [facility] Medical History (Updated 03/14/24 @ 09:52 by Dominik Jade MD) On beta cholo at home Situational anxiety Blood pressure elevated without history of HTN Lung density on x-ray SARS-CoV-2 positive Dry cough Colon cancer screening Overweight (BMI 25.0-29.9) HTN (hypertension) HLD (hyperlipidemia) Surgical History Hx of colonoscopy No pertinent past surgical history Family History Father Alcohol abuse Substance use disorder Mother Stomach cancer Brother Heart attack Social History (Updated 12/17/23 @ 17:03 by Keiko Tabares MD) Household Members Other:: 2 kids Housing: House Alcohol intake: current Alcohol intake frequency: 0-2 drinks per day Comment: glass of wine or 2 beers 3x a week Patient Tobacco Use Status: Former Tobacco user Tobacco use type: Cigarette Years Smoked: quit 1989 e-Cigarette/Vaping Use: Never Used Second Hand Smoke Exposure: No service: Yes (in [employer]) Current occupational status: employed 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 Cognitive needs: No Hearing needs: No Vision needs: No Review of Systems Const Denies weakness ENT Denies dizziness Card Denies chest pain, Denies chest pain with activity, Denies syncope, Denies rapid heart rate, Denies pedal edema, Denies edema, Denies leg edema, Denies lightheadedness, Denies palpitations, Denies dyspnea, Denies dyspnea on exertion and Denies orthopnea Resp Denies cough, Denies dyspnea and Denies dyspnea on exertion GI Denies hematochezia and Denies change in stool character Musc Denies abnormal gait, Denies muscle cramps, Denies muscle weakness, Denies numbness, Denies radiating pain into limb and Denies tingling Neuro Denies abnormal gait, Denies dizziness, Denies syncope, Denies numbness, Denies tingling and Denies weakness Endo Denies palpitations Physical Exam Vital Signs: Last Vital Signs Pulse 67 03/14/24 09:31 BP 122/68 03/14/24 09:31 BMI result Body Mass Index 27.2 Const General: comfortable and no acute distress Orientation/consciousness: patient oriented x3 HEENT Other: Unremarkable Head: Yes normal to inspection Neck Neck: Yes normal visual inspection Chest Chest palpation & inspection: normal inspection of the chest Resp Auscultation: clear to auscultation bilaterally Cardio Palpation: normal PMI Heart sounds: S1 normal heart sound present, S2 normal heart sound present, no gallops, no murmurs and no rubs GI Palpation (GI): Soft to palpation Back/Spine/Pelvis Other: unremarkable Skin General skin exam: no rashes or lesions noted Neuro General: patient oriented x3 Extrem General: Yes normal to inspection Psych Mental Status: mental status grossly normal Office Procedures EKG Details: EKG with underlying sinus rhythm at 67/Min; voltage criteria for LVH; [place] [id number], Complete Assessment & Plan Assessment & Plan (1) PAF (paroxysmal atrial fibrillation): Code(s): I48.0 - Paroxysmal atrial fibrillation Category: Medical (2) HTN (hypertension): Code(s): I10 - Essential (primary) hypertension Category: Medical Qualifiers: Hypertension type: essential hypertension Qualified Code(s): I10 - Essential (primary) hypertension Plan Echocardiogram with LVEF of 56%. Mild septal hypertrophy. Otherwise unremarkable. Holter shows underlying sinus rhythm with an average rate of 75/Min. Occasional PACs. High sensitivity Troponin slightly abnormal at 31 but thought to be flat. Pathophysiology, treatment options discussed. He can continue beta-blockers without changes. No need for anticoagulation as it is an isolated episode and he has a low thromboembolic risk. We will also screen for coronary disease with CTA. Home sleep study. Discussed with significant other. Follow-up after testing. Orders: Orders CT Cardiac Coronary Angio Today Dominik Jade MD I25.10 - Atherosclerotic heart disease of [place] coronary artery without angina pectoris, I48.0 - Paroxysmal atrial fibrillation Basic Metabolic Panel Today Dominik Jade MD I48.0 - Paroxysmal atrial fibrillation RT home sleep study Today Dominik Jade MD G47.33 - Obstructive sleep apnea (adult) (pediatric), I48.0 - Paroxysmal atrial fibrillation Medications: Changed From cetirizine (Zyrtec) 10 mg PO DAILY 30 tabs 0RF allergy symptoms J06.9 - Acute upper respiratory infection, unspecified To cetirizine (Zyrtec) 10 mg PO DAILY PRN J06.9 - Acute upper respiratory infection, unspecified CORINNE [facility] From metoprolol succinate ER 100 mg PO DAILY 90 tabs 3RF I10 - Essential (primary) hypertension To metoprolol succinate ER 50 mg PO DAILY I10 - Essential (primary) hypertension Keiko Tabares MD Coding Level of Care Code New Pt Level 4 (08840) Diagnoses PAF (paroxysmal atrial fibrillation) I48.0 Essential hypertension I10 Hypertension type: essential hypertension CPT Codes EKG - CPT: 73881-[id number], Complete ([id number])
== END 2024-03-14 10:08 | disposition home or self-care (01) ==
PROVIDERS: PCP Internal Medicine; Visit Provider Internal Medicine
DX: I48.0 Paroxysmal atrial fibrillation (principal); I10 Essential (primary) hypertension
CPT/HCPCS: 93010; 99214

== ENCOUNTER → 2024-03-14 09:28 | Outpatient (BNVA) | payer OTHER, SELFPAY | PROVIDERS: PCP Internal Medicine; Visit Provider Internal Medicine | DX: I48.0 Paroxysmal atrial fibrillation (principal); I10 Essential (primary) hypertension; Z79.899 Other long term (current) drug therapy | CPT/HCPCS: 93005 ==

== ENCOUNTER 2024-07-01 06:24 | Outpatient (REF) | payer OTHER, SELFPAY ==
[2024-07-01 08:12] LABS: Alanine Aminotransferase 78 U/L (0-40); Albumin Level 4.4 g/dL (3.5-5.0); Alkaline Phosphatase 40 U/L (39-117); Anion Gap 11 (12-20); Aspartate Amino Transferase 42 U/L (5-37); Blood Urea Nitrogen 13 mg/dL (9-16); Calcium 9.1 mg/dL (8.4-10.2); Carbon Dioxide 30 mmol/L (22-29); Chloride 101 mmol/L (96-108); Cholesterol 210 mg/dL (<200); Estimated Glomerular Filt Rate > 60; Glucose Random 97 mg/dL (60-115); HDL Cholesterol 52 mg/dL (>40); LDL Cholesterol Calculated 143 mg/dL (<100); Potassium 3.9 mmol/L (3.3-5.1); Sodium 138 mmol/L (135-145); Total Protein 7.1 g/dL (6.5-8.0); Triglycerides 78 mg/dL (<150)
== END 2024-07-01 06:25 | disposition home or self-care (01) ==
LOC: HO.LAB 06:24
PROVIDERS: PCP Internal Medicine; Visit Provider Internal Medicine
DX: E78.00 Pure hypercholesterolemia, unspecified (principal); E78.1 Pure hyperglyceridemia
CPT/HCPCS: 36415; 80053; 80061

== ENCOUNTER → 2024-08-01 10:01 | Outpatient (REF) | payer OTHER, SELFPAY | LOC: HO.SL 10:01 | PROVIDERS: PCP Internal Medicine; Visit Provider Internal Medicine | DX: G47.33 Obstructive sleep apnea (adult) (pediatric) (principal); I48.0 Paroxysmal atrial fibrillation | CPT/HCPCS: 95806 ==

== ENCOUNTER 2024-08-01 15:30 | Outpatient (AMB) | payer OTHER, SELFPAY ==
[2024-08-01 15:32] VITALS: BP 136/82; PULSE 72; O2SAT 99; BMI 28.6
--- NOTE | 2024-08-01 15:32 | MHC.PC.OV ---
Vital Signs 08/01/24 15:32 Height 6 ft 2 in Weight 223 lb BMI 28.6 BP 136/82 Blood Pressure Location Lt brachial Position Sitting Pulse 72 Pulse Source Pulse Oximeter Pulse Oximetry (%) 99 Oxygen Delivery Method Room Air Intake Visit Reasons: rt knee discoloration/ swelling Allergies lisinopril [Lisinopril] Allergy (Mild, Verified 08/01/24 15:35) ANGIOEDEMA, anaphylaxis SEASONAL ALLERGIES Allergy (Unknown, Uncoded 08/01/24 15:35) NASAL STUFFINESS Tobacco use date assessed: 08/01/24 Dental Screening Dental Screen Date: 12/17/23 HPI rt knee discoloration/ swelling HPI Details 59-year-old male with past medical history of hypertension, hypercholesterolemia, fatty liver disease, impaired glucose tolerance, atrial fibrillation last seen 01/2024 coming in for acute problem. Patient tells us today for the last 3 weeks he has been having tightness in the calf and thigh and right medial knee pain. He states he does move boxes often with his leg and has noticed the pain primarily at work. The pain will come and go and is not consistent and denies any numbness or tingling in his feet. Denies any falls or accidents or trauma to the area. [facility] Medical History On beta cholo at home Situational anxiety Blood pressure elevated without history of HTN Lung density on x-ray SARS-CoV-2 positive Dry cough Colon cancer screening Overweight (BMI 25.0-29.9) HTN (hypertension) HLD (hyperlipidemia) Surgical History Hx of colonoscopy No pertinent past surgical history Family History Father Alcohol abuse Substance use disorder Mother Stomach cancer Brother Heart attack Social History Household Members Other:: 2 kids Housing: House Alcohol intake: current Alcohol intake frequency: 0-2 drinks per day Comment: glass of wine or 2 beers 3x a week Patient Tobacco Use Status: Former Tobacco user Tobacco use type: Cigarette Years Smoked: quit 1989 e-Cigarette/Vaping Use: Never Used Second Hand Smoke Exposure: No service: Yes (in [employer]) Current occupational status: employed 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 Jonas Valladares, Farideh Barba, Dio Bonds and colleagues, with an educational soham from [employer]. Review of Systems Const Denies body aches, Denies chills, Denies fever(s) and Denies poor appetite Card Denies chest pain, Denies lightheadedness and Denies dyspnea Resp Denies cough and Denies dyspnea GI Reports no additional complaints Reports no additional complaints Musc Details: Right knee pain Reports abnormal gait Skin/Breast Reports system reviewed and no additional complaints, except as documented Neuro Reports abnormal gait Psych Reports no additional complaints Physical exam (Primary Care) Tobacco/Smoking Status: Tobacco use Status Tobacco use date assessed 12/17/23 08/01/24 15:32 Patient Tobacco Use Status Former Tobacco user 08/01/24 15:32 Tobacco use type Cigarette 08/01/24 15:32 e-Cigarette/Vaping Use Never Used 08/01/24 15:32 Thrive Assessment: Date of Thrive Assessment Date Thrive assessed 12/17/23 08/01/24 15:32 Const General: cooperative, healthy appearing, comfortable and no acute distress Orientation/consciousness: patient oriented x3 HENMT Head: Yes normocephalic Ears: hearing grossly normal bilaterally General nose exam: Normal external nose present Eyes General: appearance normal, both eyes and all related structures Conjunctivae: conjunctivae normal Neck Neck: Yes full ROM and Yes no lymphadenopathy Resp Effort & Inspection: normal respiratory effort Auscultation: clear to auscultation bilaterally, no crackles, no rales, no rhonchi and no wheezes Cardio Rate: regular rate Rhythm: regular rhythm Skin General skin exam: no rashes or lesions noted Neuro General: patient oriented x3 Gait exam (Neuro): Normal gait present Extrem Other: No tenderness to palpation over medial or lateral joint lines of the right knee. No pain to palpation over entirety of right knee, calf or thigh. No swelling, redness or warmth the bilateral lower extremities. General: Yes normal to inspection, Yes full ROM and No edema Psych Affect: normal affect Attitude: cooperative Insight: Good insight present (Psych) Judgement: Good judgement present (Psych) Coding Level of Care Code Est Pt Level 3 (34285) Diagnoses Atrial fibrillation I48.91 Essential hypertension I10 Hypertension type: essential hypertension Overweight (BMI 25.0-29.9) E66.3 Right knee pain M25.561 Assessment & Plan Assessment & Plan (1) Atrial fibrillation: Comment: CHADSVASC 1 Code(s): I48.91 - Unspecified atrial fibrillation Category: Medical Plan: Currently rate controlled with metoprolol. Not on anticoagulation. (2) HTN (hypertension): Code(s): I10 - Essential (primary) hypertension Category: Medical Qualifiers: Hypertension type: essential hypertension Qualified Code(s): I10 - Essential (primary) hypertension Plan: Continue on current blood pressure medication. Avoid salt intake and encourage healthy diet and regular exercise. (3) Overweight (BMI 25.0-29.9): Code(s): E66.3 - Overweight Category: Medical Plan: Healthy diet and regular exercise is encouraged. (4) Right knee pain: Code(s): M25.561 - Pain in right knee Category: Medical Plan: Patient complaining of intermittent right knee pain no tenderness to palpation on exam. Low suspicion for DVT at this time as patient is having no calf pain, swelling or redness. Knee joint itself is not swollen, red or warm. Pain is worse with certain movements. Advised patient to work on activity modification and avoid moving things with his lower extremities. Ordered for knee x-ray. Patient is declining physical therapy or orthopedic referral at this time and would like to start with the x-ray. Advised patient to use heating pack, Tylenol and ibuprofen as needed for pain. Reviewed red flag symptoms and when to present for re-evaluation. Patient is agreement with plan and will follow up as needed. Plan This note was constructed using voice recognition software. While every effort has been made to ensure accuracy and wiring mechanic, still areas may have been included sometimes these areas may affect the content or meeting of the given symptoms. Total time spent caring for the patient today was 20 minutes. This includes time spent before the visit reviewing the chart, time spent during the visit, and time spent after the visit and documentation. Orders: Orders XR knee RT 2V Today M25.561 - Pain in right knee
== END 2024-08-01 15:54 | disposition home or self-care (01) ==
PROVIDERS: PCP Internal Medicine
DX: M25.561 Pain in right knee (principal); I48.91 Unspecified atrial fibrillation; E66.811 Obesity, class 1; Z68.28 Body mass index [BMI] 28.0-28.9, adult; I10 Essential (primary) hypertension

== ENCOUNTER 2024-08-05 15:21 | Outpatient (REF) | payer OTHER, SELFPAY ==
--- NOTE | ~2024-08-05 | XR_ITS ---
EXAMINATION: XR KNEE, RIGHT CLINICAL INFORMATION: M25.561 - Pain in right knee COMPARISON: Right knee 11/06/2010.. TECHNIQUE: 2 views of the right knee. FINDINGS: There is mild loss of tricompartment joint space with no visible fracture, dislocation or loose bodies. There is minimal suprapatellar joint effusion. XR/XR knee RT 2V IMPRESSION: Mild degenerative changes right knee without acute fracture or dislocation. Electronically signed by: Alvarez Bowden MD 08/08/2024 08:27 AM MARVIN
== END 2024-08-05 15:22 | disposition home or self-care (01) ==
LOC: HO.XRAY 15:21
PROVIDERS: PCP Internal Medicine
DX: M25.561 Pain in right knee (principal)
CPT/HCPCS: 73560

== ENCOUNTER → 2024-08-05 15:25 | Outpatient (BNV) | payer OTHER, SELFPAY | PROVIDERS: PCP Internal Medicine; Visit Provider Radiology Diagnostic Radiology | DX: M17.11 Unilateral primary osteoarthritis, right knee (principal) | CPT/HCPCS: 73560 ==

== ENCOUNTER 2024-08-31 08:10 | Outpatient (AMB) | payer OTHER, SELFPAY ==
[2024-08-31 08:15] VITALS: BP 144/68; PULSE 82; BMI 29.3
--- NOTE | 2024-08-31 08:15 | MHC.OFFVIS ---
Vital Signs 08/31/24 08:15 Height 6 ft 2 in Weight 228 lb 6.382 oz BMI 29.3 BP 144/68 H Blood Pressure Location Lt brachial Position Sitting Pulse 82 Pulse Source Pulse Oximeter Intake Visit Reasons: 3 mth fu cta/ sleep Design Eng Required: No Accompanied by: Spouse Allergies lisinopril [Lisinopril] Allergy (Mild, Verified 08/01/24 15:35) ANGIOEDEMA, anaphylaxis SEASONAL ALLERGIES Allergy (Unknown, Uncoded 08/01/24 15:35) NASAL STUFFINESS Medication List - Last Reconciled 08/31/24 by Dominik Jade MD metoprolol succinate ER 100 mg PO DAILY HPI Comments Details: Patient returns for follow-up. Recently seen in consultation regarding atrial fibrillation. In 11/2023, he had palpitations and that led to ER visit at [facility]. Found to be in atrial fibrillation. Spontaneously resolved according to patient. Total duration is a few hours but nothing prolonged. After that, he was on metoprolol. Recently had another brief episode and it seems metoprolol dose has been increased. Overall, 2 very brief episodes but nothing prolonged. No other known cardiac issues. Otherwise, he is feeling fine. No angina. He does drink alcohol 2 to 3 times a week but denies any excessive use. Blood pressure is still running high. [facility] Medical History On beta cholo at home Situational anxiety Blood pressure elevated without history of HTN Lung density on x-ray SARS-CoV-2 positive Dry cough Colon cancer screening Overweight (BMI 25.0-29.9) HTN (hypertension) HLD (hyperlipidemia) Surgical History Hx of colonoscopy No pertinent past surgical history Family History Father Alcohol abuse Substance use disorder Mother Stomach cancer Brother Heart attack Social History Household Members Other:: 2 kids Housing: House Alcohol intake: current Alcohol intake frequency: 0-2 drinks per day Comment: glass of wine or 2 beers 3x a week Patient Tobacco Use Status: Former Tobacco user Tobacco use type: Cigarette Years Smoked: quit 1989 e-Cigarette/Vaping Use: Never Used Second Hand Smoke Exposure: No service: Yes (in [employer]) Current occupational status: employed 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 Cognitive needs: No Hearing needs: No Vision needs: No Review of Systems Const Denies chills, Denies fatigue, Denies fever(s), Denies weight gain and Denies weight loss ENT Denies dizziness Card Denies chest pain, Denies leg edema, Denies lightheadedness, Denies palpitations, Denies dyspnea on exertion, Denies orthopnea and Denies other Resp Denies cough and Denies dyspnea on exertion GI Denies hematochezia and Denies change in stool character Musc Denies abnormal gait, Denies muscle weakness, Denies numbness, Denies radiating pain into limb and Denies tingling Neuro Denies abnormal gait, Denies dizziness, Denies numbness and Denies tingling Endo Denies fatigue and Denies palpitations Physical Exam Vital Signs: Last Vital Signs Pulse 82 08/31/24 08:15 BP 144/68 H 08/31/24 08:15 BMI result Body Mass Index 29.3 Const General: comfortable and no acute distress Orientation/consciousness: patient oriented x3 HEENT Other: Unremarkable Head: Yes normal to inspection Neck Neck: Yes normal visual inspection Chest Chest palpation & inspection: normal inspection of the chest Resp Auscultation: clear to auscultation bilaterally Cardio Palpation: normal PMI Heart sounds: S1 normal heart sound present, S2 normal heart sound present, no gallops, no murmurs and no rubs GI Palpation (GI): Soft to palpation Back/Spine/Pelvis Other: unremarkable Skin General skin exam: no rashes or lesions noted Neuro General: patient oriented x3 Extrem General: Yes normal to inspection Psych Mental Status: mental status grossly normal Assessment & Plan Assessment & Plan (1) PAF (paroxysmal atrial fibrillation): Code(s): I48.0 - Paroxysmal atrial fibrillation Category: Medical Plan: Cardiac studies reviewed. Echocardiogram with LVEF of 56%. Mild septal hypertrophy. Otherwise unremarkable. Holter shows underlying sinus rhythm with an average rate of 75/Min. Occasional PACs. Coronary CTA shows no evidence of hemodynamically significant disease. Home sleep study with no evidence of sleep apnea. Overall, well controlled paroxysmal atrial fibrillation with minimal burden. Continue higher dose of beta-blockers. Weight loss. Avoid excessive alcohol use. If continued occurrence, consider anticoagulation but currently low burden and also has low thromboembolic risk. (2) HTN (hypertension): Code(s): I10 - Essential (primary) hypertension Category: Medical Qualifiers: Hypertension type: essential hypertension Qualified Code(s): I10 - Essential (primary) hypertension Plan: Seems elevated. We discussed about adding another medication but he would like to lose weight and then decide. Then consider amlodipine or losartan. Plan Discussed with significant other. Coding Level of Care Code Est Pt Level 4 (34881) Diagnoses PAF (paroxysmal atrial fibrillation) I48.0 Essential hypertension I10 Hypertension type: essential hypertension
== END 2024-08-31 08:35 | disposition home or self-care (01) ==
PROVIDERS: PCP Internal Medicine; Visit Provider Internal Medicine
DX: I48.0 Paroxysmal atrial fibrillation (principal); I10 Essential (primary) hypertension
CPT/HCPCS: 99214

== ENCOUNTER 2025-03-01 09:04 | Outpatient (AMB) | payer OTHER, SELFPAY ==
--- NOTE | 2025-03-01 09:10 | MHC.OFFVIS ---
Vital Signs 03/01/25 09:14 Height 6 ft 2 in Weight 227 lb BMI 29.1 BP 130/68 Blood Pressure Location Lt brachial Position Sitting Pulse 70 Pulse Source Monitor Intake Visit Reasons: 6m follow up Allergies lisinopril (Lisinopril) Allergy (Mild, Verified 08/01/24 15:35) ANGIOEDEMA, anaphylaxis SEASONAL ALLERGIES Allergy (Unknown, Uncoded 08/01/24 15:35) NASAL STUFFINESS Medication List - Last Reconciled 03/01/25 by Dominik Jade MD metoprolol succinate ER 100 mg PO DAILY HPI Comments Details: Patient returns for follow-up regarding atrial fibrillation. In 11/2023, he had palpitations and that led to ER visit at [facility]. Found to be in atrial fibrillation. Spontaneously resolved according to patient. Total duration is a few hours but nothing prolonged. After that, he was on metoprolol. Then had another brief episode and it seems metoprolol dose has been increased. Overall, 2 very brief episodes but nothing prolonged. No other known cardiac issues. He has hypertension medications. Overall, he states he feels good. No cardiac symptoms whatsoever. Unable to lose any weight. [facility] Medical History On beta cholo at home Situational anxiety Blood pressure elevated without history of HTN Lung density on x-ray SARS-CoV-2 positive Dry cough Colon cancer screening Overweight (BMI 25.0-29.9) HTN (hypertension) HLD (hyperlipidemia) Surgical History Hx of colonoscopy No pertinent past surgical history Family History Father Alcohol abuse Substance use disorder Mother Stomach cancer Brother Heart attack Social History Household Members Other:: 2 kids Housing: House Alcohol intake: current Alcohol intake frequency: 0-2 drinks per day Comment: glass of wine or 2 beers 3x a week Patient Tobacco Use Status: Former Tobacco user Tobacco use type: Cigarette Years Smoked: quit 1989 e-Cigarette/Vaping Use: Never Used Second Hand Smoke Exposure: No service: Yes (in [place]) Current occupational status: employed 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 Cognitive needs: No Hearing needs: No Vision needs: No Review of Systems Const Denies weakness ENT Denies dizziness Card Denies chest pain, Denies chest pain with activity, Denies syncope, Denies rapid heart rate, Denies pedal edema, Denies edema, Denies leg edema, Denies lightheadedness, Denies palpitations, Denies dyspnea, Denies dyspnea on exertion and Denies orthopnea Resp Denies cough, Denies dyspnea and Denies dyspnea on exertion GI Denies hematochezia and Denies change in stool character Musc Denies abnormal gait, Denies muscle cramps, Denies muscle weakness, Denies numbness, Denies radiating pain into limb and Denies tingling Neuro Denies abnormal gait, Denies dizziness, Denies syncope, Denies numbness, Denies tingling and Denies weakness Endo Denies palpitations Physical Exam Vital Signs: Last Vital Signs Pulse 70 03/01/25 09:14 BP 130/68 03/01/25 09:14 BMI result Body Mass Index 29.1 Const General: comfortable and no acute distress Orientation/consciousness: patient oriented x3 HEENT Other: Unremarkable Head: Yes normal to inspection Neck Neck: Yes normal visual inspection Chest Chest palpation & inspection: normal inspection of the chest Resp Auscultation: clear to auscultation bilaterally Cardio Palpation: normal PMI Heart sounds: S1 normal heart sound present, S2 normal heart sound present, no gallops, no murmurs and no rubs GI Palpation (GI): Soft to palpation Back/Spine/Pelvis Other: unremarkable Skin General skin exam: no rashes or lesions noted Neuro General: patient oriented x3 Extrem General: Yes normal to inspection Psych Mental Status: mental status grossly normal Office Procedures EKG Details: EKG with underlying sinus rhythm at 70/Min; left ventricular hypertrophy with repolarization changes; [place] [id number], Complete Assessment & Plan Assessment & Plan (1) PAF (paroxysmal atrial fibrillation): Code(s): I48.0 - Paroxysmal atrial fibrillation Category: Medical Plan: Cardiac studies reviewed. Echocardiogram with LVEF of 56%. Mild septal hypertrophy. Otherwise unremarkable. Holter shows underlying sinus rhythm with an average rate of 75/Min. Occasional PACs. Coronary CTA shows no evidence of hemodynamically significant disease. Home sleep study with no evidence of sleep apnea. Overall, well controlled paroxysmal atrial fibrillation with minimal burden. Continue higher dose of beta-blockers. Weight loss. Avoid excessive alcohol use. If continued occurrence, consider anticoagulation but currently low burden and also has low thromboembolic risk. We discussed about the other issues at length today. (2) HTN (hypertension): Code(s): I10 - Essential (primary) hypertension Category: Medical Qualifiers: Hypertension type: essential hypertension Qualified Code(s): I10 - Essential (primary) hypertension Plan: Stable. Seems stable. Continue efforts for weight loss. Based on the future trend, may need additional medications. Plan Discussion Notes I discussed with the patient the importance of monitoring his blood pressure and maintaining it below 130/80 mmHg. We talked about his panic attacks and reassured him that he does not have any blockages, reducing the likelihood of a heart attack. I advised him to manage stress effectively and continue his current lifestyle habits to support his health. A follow-up appointment is scheduled for six months to monitor his progress. Patient was informed and verbally consented to the use of an ambient scribe for clinic note documentation during this visit. Patient Instructions: - Monitor your blood pressure regularly and keep it below 130/80 mmHg. - Continue your current diet and exercise routine to manage your weight. - Minimize alcohol consumption. - Manage stress effectively to help prevent panic attacks. - Follow up in six months for reassessment. Coding Level of Care Code Est Pt Level 4 (82574) Complex EM visit Add On G2211 Diagnoses PAF (paroxysmal atrial fibrillation) I48.0 Essential hypertension I10 Hypertension type: essential hypertension CPT Codes EKG - CPT: 71794-[id number], Complete ([id number])
[2025-03-01 09:14] VITALS: BP 130/68; PULSE 70; BMI 29.1
== END 2025-03-01 09:36 | disposition home or self-care (01) ==
LOC: HO.HCS 09:04
PROVIDERS: PCP Internal Medicine; Visit Provider Internal Medicine
DX: I48.0 Paroxysmal atrial fibrillation (principal); I10 Essential (primary) hypertension
CPT/HCPCS: 93010; 99214; G2211

== ENCOUNTER → 2025-03-01 09:04 | Outpatient (BNVA) | payer OTHER, SELFPAY | PROVIDERS: PCP Internal Medicine; Visit Provider Internal Medicine | DX: I48.0 Paroxysmal atrial fibrillation (principal); I10 Essential (primary) hypertension; I51.7 Cardiomegaly; R94.31 Abnormal electrocardiogram [ECG] [EKG] | CPT/HCPCS: 93005 ==

== ENCOUNTER 2025-06-22 12:21 | Outpatient (AMB) | payer OTHER, SELFPAY ==
[2025-06-22 12:27] VITALS: BP 158/80; PULSE 78; O2SAT 98; BMI 28.9
--- NOTE | 2025-06-22 12:27 | MHC.PC.OV ---
Vital Signs 06/22/25 12:27 Height 6 ft 2 in Weight 225 lb BMI 28.9 BP 158/80 H Blood Pressure Location Lt brachial Position Sitting Pulse 78 Pulse Source Pulse Oximeter Pulse Oximetry (%) 98 Oxygen Delivery Method Room Air Intake Visit Reasons: PHYSICAL - see comments Allergies lisinopril (Lisinopril) Allergy (Mild, Verified 06/22/25 12:28) ANGIOEDEMA, anaphylaxis SEASONAL ALLERGIES Allergy (Unknown, Uncoded 06/22/25 12:28) NASAL STUFFINESS Medication List - Last Reconciled 06/22/25 by Keiko Tabares MD betamethasone dipropionate 0.05% 1 appl topical BID PRN metoprolol succinate ER 100 mg PO DAILY Tobacco use date assessed: 06/22/25 Dental Screening Dental Screen Date: 06/22/25 Did you have a dental visit in the last 12 months?: Yes Did you have a dental problem in the last 6 months where you did not have access to dental care?: No Was dental information given to patient?: Patient has dentist [facility] Medical History On beta cholo at home Situational anxiety Blood pressure elevated without history of HTN Lung density on x-ray SARS-CoV-2 positive Dry cough Colon cancer screening Overweight (BMI 25.0-29.9) HTN (hypertension) HLD (hyperlipidemia) Surgical History Hx of colonoscopy No pertinent past surgical history Family History Father Alcohol abuse Substance use disorder Mother Stomach cancer Brother Heart attack Social History Household Members Other:: 2 kids Housing: House Alcohol intake: current Alcohol intake frequency: 0-2 drinks per day Comment: glass of wine or 2 beers 3x a week Patient Tobacco Use Status: Former Tobacco user Tobacco use type: Cigarette Years Smoked: quit 1989 e-Cigarette/Vaping Use: Never Used Second Hand Smoke Exposure: No service: Yes (in [place]) Current occupational status: employed 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 1. Little interest or pleasure in doing things: several days 2. Feeling down, depressed, or hopeless: several days 3. Trouble falling or staying asleep, or sleeping too much: not at all 4. Feeling tired or having little energy: several days 5. Poor appetite or overeating: several days 6. Feeling bad about yourself - or that you are a failure or have let yourself or your family down: not at all 7. Trouble concentrating on things, such as reading the newspaper or watching television: not at all 8. Moving or speaking so slowly that other people could have noticed. Or the opposite - being so fidgety or restless that you have been moving around a lot more than usual: not at all 9. Thoughts that you would be better off or of hurting yourself in some way: not at all Total score: 4 Depression Screening Interpretation: Positive Depression Screening Done: Yes Source: Developed by Drs. Jonas Valladares, Farideh Barba, Dio Bonds and colleagues, with an educational soham from [employer]. Thrive Questionnaire Date Thrive assessed: 06/22/25 I am a: Patient What is your living situation today?: I have a steady place to live Within the past 12 months, did the food you bought not last and you didn't have the money to get more?: Often true Within the past 12 months, did you worry whether your food would run out before you got money to buy more?: Often true Do you have trouble paying for medicines?: No Do you have trouble getting transportation to medical appointments?: No Do you have trouble paying your heating and electricity bill?: No Do you have trouble taking care of your child, family member or friend?: No Do you have trouble with day-to-day activities such as bathing, preparing meals, shopping, managing finances, etc.?: No Are you currently unemployed and looking for a job?: No Are you interested in more education?: No Please select the resources that you would like help with: None Currently or been in a relationship where the following occur: I choose not to answer THRIVE Score: 2 AUDIT C Alcohol Use Questionnaire (AUDIT-C) 1. How often do you have a drink containing alcohol?: 2-3 times a week 2. How many drinks containing alcohol do you have on a typical day when you are drinking?: 1 or 2 3. How often do you have six or more drinks on one occasion?: Never Total Score: 3 SCOTT-7 AMB Questionnaire SCOTT-7 Date SCOTT - 7 assessed: 06/22/25 Feeling nervous, anxious, or on edge: 0 = Not at all Not being able to stop or control worryin = Not at all Worrying too much about different things: 0 = Not at all Trouble relaxin = Not at all Being so restless that it is hard to sit still: 0 = Not at all Becoming easily annoyed or irritable: 0 = Not at all Feeling afraid as if something awful might happen: 0 = Not at all Total SCOTT-7 score (0-4 normal; 5-9 mild; 10-14 moderate; 15-21 severe): 0 Source: Developed by Drs. Jonas Valladares, Farideh Barba, Dio Bonds and colleagues, with an educational soham from [employer]. Review of Systems Const Denies poor appetite and Denies weakness Eyes Denies no additional complaints ENT Reports Normal hearing present, Denies dizziness, Denies nasal congestion, Denies tinnitus and Denies sore throat Card Denies chest pain, Denies syncope, Denies rapid heart rate and Denies dyspnea Resp Denies cough and Denies dyspnea GI Denies change in stool character, Reports constipation, Denies diarrhea, Denies nausea and Denies vomiting Denies dysuria and Denies urinary frequency Neuro Reports Normal hearing present, Denies confusion, Denies dizziness, Denies syncope and Denies weakness Psych Denies confusion Physical exam (Primary Care) Vital Signs: Last Vital Signs Pulse 78 06/22/25 12:27 BP 158/80 H 06/22/25 12:27 Pulse Ox 98 06/22/25 12:27 Oxygen Delivery Method Room Air 06/22/25 12:27 BMI result Body Mass Index 28.9 Tobacco/Smoking Status: Tobacco use Status Tobacco use date assessed 06/22/25 06/22/25 12:31 Patient Tobacco Use Status Former Tobacco user 06/22/25 12:31 Tobacco use type Cigarette 06/22/25 12:31 e-Cigarette/Vaping Use Never Used 06/22/25 12:31 PHQ-9: PHQ-9 Score PHQ-9: Total score 4 06/22/25 12:31 Depression Screening Interpretation: Positive Thrive Assessment: Date of Thrive Assessment Date Thrive assessed 06/22/25 06/22/25 12:31 Currently or been in a relationship where the following occur: I choose not to answer Const General: alert and awake; No confusion Orientation/consciousness: No confusion HENMT Head: Yes normocephalic Ears: external ears normal and TM's normal bilaterally Face and sinus: Yes normal facial exam Mouth: moist mucous membranes Throat: Yes tonsils normal Eyes Conjunctivae: conjunctivae normal Pupils: Equal, round and reactive pupils present and Pupil accommodation reflex normal Direct Ophthalmoscopy: normal light reflex Neck Neck: No lymphadenopathy Thyroid: Thyroid normal Chest Chest palpation & inspection: normal inspection of the chest Resp Effort & Inspection: normal respiratory effort and no audible wheezes Auscultation: clear to auscultation bilaterally, no crackles, no wheezes and lung sounds not diminished Cardio Rate: regular rate Rhythm: regular rhythm Peripheral pulses: radial pulses present and dorsalis pedis present GI Palpation (GI): no masses Auscultation: normal bowel sounds and normoactive bowel sounds Rectal Exam - Male: Yes deferred Other: left inguinal hernia Skin General skin exam: no rashes or lesions noted Rashes: no rashes Neuro General: deep tendon reflexes 2+ bilaterally and No confusion Cranial nerves: Yes Equal, round and reactive pupils present, Yes Midline tongue present, Yes Normal hearing present and Yes Ability to bilaterally elevate shoulders present Cognition (Neuro): normal cognition Gait exam (Neuro): Normal gait present Motor exam (neuro): 5/5 motor strength present throughout Deep tendon reflexes (DTR's): Right brachioradialis reflex intensity grade: 2+, Left brachioradialis reflex intensity grade: 2+, Right patellar reflex intensity grade: 2+ and Left patellar reflex intensity grade: 2+ Extrem General: No edema Coding Level of Care Code Est Pt Prev Care 40-64y(62027) Diagnoses Annual physical exam Z00.00 Atrial fibrillation I48.91 Essential hypertension I10 Hypertension type: essential hypertension Pure hypertriglyceridemia E78.1 Hyperlipidemia type: pure hypertriglyceridemia Impaired fasting blood sugar R73.01 Overweight (BMI 25.0-29.9) E66.3 Fatty liver K76.0 Tubular adenoma D36.9 Osteoarthritis of right knee M17.11 Left inguinal hernia K40.90 Assessment & Plan Assessment & Plan (1) Annual physical exam: Code(s): Z00.00 - Encounter for general adult medical examination without abnormal findings Category: Medical Plan: Patient is advised to eat healthy, keep well hydrated, keep active and have adequate sleep. (2) Atrial fibrillation: Comment: [facility] 1 Code(s): I48.91 - Unspecified atrial fibrillation Category: Medical Plan: Patient is being followed up by Cardiology CTA no significant disease, echocardiogram within normal limits on metoprolol 100 mg once a day (3) HTN (hypertension): Code(s): I10 - Essential (primary) hypertension Category: Medical Qualifiers: Hypertension type: essential hypertension Qualified Code(s): I10 - Essential (primary) hypertension Plan: Continue with blood pressure medication. Decrease salt intake and exercise on metoprolol 100 mg once a day (4) HLD (hyperlipidemia): Code(s): E78.5 - Hyperlipidemia, unspecified Category: Medical Qualifiers: Hyperlipidemia type: pure hypertriglyceridemia Qualified Code(s): E78.1 - Pure hyperglyceridemia Plan: Avoid fried foods, chicken skin, eggs, butter margarine, pastries and meat. Be it pork or beef they have a lot of cholesterol LDL goal of less than 130 and triglyceride of less than 150 (5) Impaired fasting blood sugar: Code(s): R73.01 - Impaired fasting glucose Category: Medical Plan: Decrease the amount of carbohydrate intake, pasta, bread, rice and potatoes are all sugar and that is aside from all the sweet stuff, remember that fruits are good but they are Sweet also. (6) Overweight (BMI 25.0-29.9): Code(s): E66.3 - Overweight Category: Medical Plan: Diet and exercise (7) Fatty liver: Code(s): K76.0 - Fatty (change of) liver, not elsewhere classified Category: Medical Plan: low-fat diet and exercise (8) Tubular adenoma: Comment: 2021 repeat colon 5 years Code(s): D36.9 - Benign neoplasm, unspecified site Category: Medical Plan: up-to-date with colonoscopy (9) Osteoarthritis of right knee: Code(s): M17.11 - Unilateral primary osteoarthritis, right knee Category: Medical Plan: keep active. Lose the weight (10) Left inguinal hernia: Code(s): K40.90 - Unilateral inguinal hernia, without obstruction or gangrene, not specified as recurrent Category: Medical Plan: avoid heavy lifting. Plan History of Present Illness The patient is a 60-year-old male presenting for a physical exam and management of chronic conditions. His past medical history is significant for atrial fibrillation, hypertension, hypercholesterolemia, fatty liver, and impaired glucose tolerance. He has a history of tubular adenoma found on his last colonoscopy in July 2022 and is considered up to date with screening. For his atrial fibrillation, he was seen by cardiology in February and had an echocardiogram showing an ejection fraction of 56% and a coronary CTA with no evidence of hemodynamically significant disease. He is on metoprolol 100 mg once a day. He denies having sleep apnea. Regarding his hypertension, he reports checking his blood pressure at home, with readings around 130/90-92 mmHg. He has a known allergy to lisinopril. The patient's last blood work was a year ago, with an LDL of 143 mg/dL. He has a history of knee pain with an X-ray showing mild osteoarthritis of the right knee. His mother had stomach cancer and possibly kidney cancer, and his brother had a myocardial infarction. He denies any new diagnoses or surgeries since his last visit. Health Maintenance - Colon cancer screening: The patient is up to date with his colonoscopy, which was last performed in July 2022. - Lipid screening: His LDL was 143 mg/dL on his last blood work a year ago, with a goal of less than 130 mg/dL. A fasting blood test was ordered to recheck his cholesterol. - Diabetes screening: The patient has a history of impaired glucose tolerance. A fasting blood test was ordered to check his sugars. - Vision screening: The patient had an eye exam a couple of months ago and has an appointment scheduled for next year. - Lifestyle counseling: Advised to lose weight, maintain an active lifestyle, and follow a low-fat diet. - Alcohol use: Cardiology advised avoiding excessive alcohol use, and he was counseled that alcohol can trigger atrial fibrillation. - Vaccinations: The shingles vaccine was discussed as a two-part shot available at pharmacies, though the patient expressed that he does not like vaccines. - Hernia prevention: Advised to avoid heavy lifting due to the newly diagnosed left inguinal hernia. Social History - Alcohol use: The patient reports drinking alcohol, such as a beer or glass of wine, about three times a week. - Tobacco/Substance Use: He denies any history of smoking cigarettes or using marijuana. - Diet and activity: He has been advised to lose weight and was counseled on diet and exercise. He acknowledges that it is hard to lose weight now that he is older and tends to snack while watching TV. - Marital status: He is and his helps manage his medications. Review of Systems - Constitutional: Denies fever. - Cardiovascular: Denies chest pain or heaviness. Reports his pulse can increase to the 90s with activity but it resolves with rest. - Respiratory: Denies waking up short of breath. Reports occasional shortness of breath that resolves upon sitting down and relaxing. - Gastrointestinal: Denies nausea, vomiting, dysphagia, constipation, or diarrhea. Reports very rare heartburn that resolves with water. - Genitourinary: Denies urinary problems or frequent nocturia unless he drinks a lot of water. - Neurological: Denies syncope or dizziness. - HEENT: Reports some vision changes, requiring new glasses recently. Denies hearing problems. Physical Exam General: Cooperative, healthy appearing, comfortable, no acute distress and well developed Orientation: Patient oriented x3 Limitations: No limitations Head: Normal to inspection Ears: Hearing grossly normal bilaterally Nose: Normal external nose present Face and sinus: Normal facial exam Eyes: Appearance normal, both eyes and all related structures Neck: Normal visual inspection and Yes full ROM Respiratory: Normal respiratory effort and able to speak in complete sentences. Clear to auscultation bilaterally Cardiovascular: Regular rate and rhythm. Normal S1 and S2 GI: Normal to inspection. Soft to palpation and nontender Skin: No rashes or lesions noted Neuro: Patient oriented x3 Extremities: Normal to inspection Results - Labs: LDL was 143 mg/dL on blood work from last year. - Imaging: - Echocardiogram (February): Ejection fraction 56%. - Coronary CTA (February): No evidence of hemodynamically significant disease. - Right knee X-ray: Showed mild osteoarthritis. Plan Patient was informed and verbally consented to the use of an ambient scribe for clinic note documentation during this visit. 1. Wellness Exam/Health Maintenance A fasting blood test has been ordered to check blood glucose and cholesterol levels. The patient was counseled on lifestyle modifications including weight loss, a low-fat diet, staying active, and avoiding excessive alcohol use. The benefits of the shingles vaccine were discussed, and the patient was informed it is available at the pharmacy. 2. Atrial Fibrillation The patient will continue metoprolol 100 mg once daily. He was advised to be cautious with alcohol as it can trigger atrial fibrillation and to notify the office if his heart feels like it is beating very fast. 3. Hypertension The patient will continue on metoprolol 100 mg once daily. The patient was educated that blood pressure goals are less than 140 for the top number and less than 90 for the bottom number, as elevated pressures can enlarge the heart. 4. Hypercholesterolemia The patient was counseled on a goal LDL of less than 130 mg/dL and a triglyceride goal of less than 150 mg/dL. He will have a fasting lipid panel checked. He was advised to follow a low-fat diet and exercise. 5. Left Inguinal Hernia The patient was educated about the new diagnosis of a left inguinal hernia, which was found on exam. He was strongly advised to avoid heavy lifting to prevent the hernia from worsening. He was instructed to report if it becomes larger or causes pain, as this may necessitate surgery. Discussion Notes I reviewed the patient's chronic conditions, including his atrial fibrillation, hypertension, and hypercholesterolemia. I noted his recent cardiology workup was reassuring and reinforced the importance of medication adherence with metoprolol and lifestyle modifications, particularly avoiding excessive alcohol. We discussed his home blood pressure readings and the goal to keep his pressure below 140/90 mmHg to prevent cardiac complications. During the physical exam, I identified a left inguinal hernia. I explained the nature of the hernia and the risk of complications, strongly advising him to avoid all heavy lifting to prevent enlargement, which could necessitate surgery. I advised him to let me know if it gets bigger or becomes painful. I have ordered a fasting blood test to reassess his cholesterol and glucose levels and will follow up with him by phone to discuss the results. We also discussed the availability of the shingles vaccine. Patient Instructions - You will need to get a fasting blood test done. For 8 hours before the test, do not eat any food; you may only have sips of water. - Continue taking your metoprolol 100 mg once a day. - Monitor your blood pressure at home. Your goal is to keep it under 140/90. - You have a left inguinal hernia. It is very important that you do not lift any heavy items. Let us know if the hernia gets bigger or starts to hurt. - Continue to focus on weight loss by eating a healthy, low-fat diet and keeping active. - Be careful with how much alcohol you drink, as it can affect your heart. - A vaccine to prevent shingles is recommended and is available at your pharmacy. - We will call you with your blood test results. Orders: Orders Vitamin B12 and Folate Today E78.1 - Pure hyperglyceridemia Prostate Specific Antigen Scr Today E78.1 - Pure hyperglyceridemia Complete Blood Count Auto Diff Today E78.1 - Pure hyperglyceridemia Comprehensive Met. Panel Today E78.1 - Pure hyperglyceridemia Free T4 (Free Thyroxine) Today E78.1 - Pure hyperglyceridemia Thyroid Stimulating Hormone Today E78.1 - Pure hyperglyceridemia Lipid Panel Today E78.00 - Pure hypercholesterolemia, unspecified, E78.1 - Pure hyperglyceridemia Hemoglobin A1c Today E78.1 - Pure hyperglyceridemia Medications: New betamethasone dipropionate 0.05% 1 appl topical BID PRN 15 grams 0RF skin irritation betamethasone dipropionate 0.05% 1 appl topical BID PRN 15 grams 0RF skin irritation E78.1 - Pure hyperglyceridemia Refilled metoprolol succinate ER 100 mg PO DAILY 90 tabs 2RF I10 - Essential (primary) hypertension
== END 2025-06-22 13:01 | disposition home or self-care (01) ==
LOC: HO.HMCH 12:22
PROVIDERS: PCP Internal Medicine; Visit Provider Internal Medicine
DX: Z00.00 Encounter for general adult medical examination without abnormal findings (principal); I48.91 Unspecified atrial fibrillation; I10 Essential (primary) hypertension; E78.1 Pure hyperglyceridemia; R73.01 Impaired fasting glucose; E66.3 Overweight; K76.0 Fatty (change of) liver, not elsewhere classified; D36.9 Benign neoplasm, unspecified site; M17.11 Unilateral primary osteoarthritis, right knee; K40.90 Unilateral inguinal hernia, without obstruction or gangrene, not specified as recurrent

== ENCOUNTER 2025-06-29 07:02 | Outpatient (REF) | payer OTHER, SELFPAY ==
[2025-06-29 07:13] LABS: MANUAL DIFF FLAG NO
[2025-06-29 07:22] LABS: Hematocrit 44.5 % (42.0-52.0); Hemoglobin 15.4 g/dl (14.0-18.0); Imm Gran Abs Auto 0.01 X10*3/uL (0.00-0.03); Imm Gran Pct Auto 0.1 % (0.0-0.4); Lymphocytes Absolute Auto 1.7 X10*3/uL (1.2-4.9); Mean Corpuscular HGB Conc 34.6 g/dl (31.0-36.0); Mean Corpuscular Hemoglobin 30.1 pg (27.0-33.0); Mean Corpuscular Volume 87.1 fL (80.0-98.0); NRBC Abs Auto 0.000 X10*3/uL (0.0-0.012); NRBC Pct Auto 0.0 /100WBC (0.0-0.2); Platelet Count 199 X10*3/uL (160-400); Red Blood Count 5.11 X10*6/uL (4.60-5.80); White Blood Count 6.7 X10*3/uL (4.8-10.8)
[2025-06-29 07:56] LABS: Alanine Aminotransferase 125 U/L (0-40); Albumin Level 4.7 g/dL (3.5-5.0); Alkaline Phosphatase 40 U/L (39-117); Anion Gap 10 (12-20); Aspartate Amino Transferase 58 U/L (5-37); Blood Urea Nitrogen 14 mg/dL (9-16); Calcium 9.2 mg/dL (8.4-10.2); Carbon Dioxide 28 mmol/L (22-29); Chloride 104 mmol/L (96-108); Cholesterol 208 mg/dL (<200); Estimated Glomerular Filt Rate > 60; HDL Cholesterol 50 mg/dL (>40); Potassium 4.1 mmol/L (3.3-5.1); Sodium 138 mmol/L (135-145); Total Protein 7.3 g/dL (6.5-8.0); Triglycerides 71 mg/dL (<150)
[2025-06-29 08:04] LABS: Hemoglobin A1C 114.5731 umol/L
[2025-06-29 08:12] LABS: Free T4 (Free Thyroxine) 1.08 ng/dL (0.71-1.85); Thyroid Stimulating Hormone 0.91 uIU/mL (0.32-4.0)
[2025-06-29 08:20] LABS: Folate 12.7 ng/mL (> or = 4.0); Vitamin B12 445 pg/mL (200-900)
== END 2025-06-29 07:03 | disposition home or self-care (01) ==
LOC: HO.LAB 07:02
PROVIDERS: PCP Internal Medicine; Visit Provider Internal Medicine
DX: E78.1 Pure hyperglyceridemia (principal); E78.00 Pure hypercholesterolemia, unspecified; Z13.1 Encounter for screening for diabetes mellitus; Z12.5 Encounter for screening for malignant neoplasm of prostate
CPT/HCPCS: 36415; 80053; 80061; 82607; 82746; 83036; 84153; 84439; 84443; 85025